=== PATIENT | female | born 1970 | race Caucasian/White ===

== ENCOUNTER 2017-01-25 23:26 | Emergency (ER) | payer OTHER ==
[~2017-01-25] VITALS: Ht 172.7 cm; Wt 71.2 kg
[~2017-01-25 23:26] MED LIST: ACIPHEX 20 MG T20 MG PO; ADULT LOW DOSE81 MG PO; ALEVE220 M1 PO; CARVEDILOL3.125 MG PO; CIPROFLOXACIN500 M1 PO; CLARITIN10 M2 PO; FISH OIL 1,0001 EAC5 PO; FLAGYL500 MG PO; FLEXERIL PO; FUROSEMIDE 40 M40 MG PO; GLUCOPHAGE500 MG PO; HYDROCODON-ACE1 EAC7; LANSOPRAZOLE15 MG PO; LEVAQUIN 500 M500 M2 PO; LISINOPRIL10 MG PO; MONTELUKAST SOD10 MG PO; NICOTINE TRANSD14 M1 PO; NORCO 5-325 TA1 EACH PO; PERCOCET 5-3251 EACH PO; POTASSIUM20; PREDNISONE 20 M20 M1 PO; PREMIER DRAINA MC; PROVENTIL HFA6.7 G1 INH; ROBAXIN 750 MG750 M1 PO; SIMVASTATIN10 MG PO; SINGULAIR 10 MG10 M1 PO; TAPAZOLE5 MG PO; TOPAMAX 25 MG T25 M1 PG; TOPAMAX25 M1 PO; TRAMADOL 50 MG50 MG PO; ULTRAM 50MG TAB50 MG PO; VALIUM2 MG PO; VALIUM5 MG PO; VENTOLIN HFA 1818 GM INH; VITAMIN D 5050000 I1 PO; ZPAK PO
[2017-01-25] MEDS ORDERED: PLAVIX 75 MG TA75 M1 PO (23:53)
[2017-01-25] MEDS ORDERED: ZYRTEC10 M5 PO (23:53)
== END 2017-01-26 00:15 | disposition home or self-care (01) ==
LOC: ER 23:26
DX: M77.9 Enthesopathy, unspecified (principal); F41.9 Anxiety disorder, unspecified; J45.909 Unspecified asthma, uncomplicated; M19.90 Unspecified osteoarthritis, unspecified site; E03.9 Hypothyroidism, unspecified; I50.9 Heart failure, unspecified; F32.9 Major depressive disorder, single episode, unspecified; F15.90 Other stimulant use, unspecified, uncomplicated; F17.210 Nicotine dependence, cigarettes, uncomplicated; Z86.73 Personal history of transient ischemic attack (TIA), and cerebral infarction without residual deficits; Z91.048 Other nonmedicinal substance allergy status; Z88.5 Allergy status to narcotic agent; Z88.6 Allergy status to analgesic agent; Z88.0 Allergy status to penicillin; Z91.011 Allergy to milk products; Z88.8 Allergy status to other drugs, medicaments and biological substances

== ENCOUNTER 2017-02-04 20:51 | Emergency (ER) | payer OTHER ==
[~2017-02-04] VITALS: Ht 172.7 cm; Wt 71.2 kg
[~2017-02-04 20:51] MED LIST changes: +PLAVIX 75 MG TA75 M1 PO; +ZYRTEC10 M5 PO
[2017-02-04] MEDS ORDERED: NORCO 5-325 TA1 EACH PO (21:35)
[2017-02-04] MEDS ORDERED: DIFLUCAN200 MG PO (21:43)
[2017-02-04] MEDS ORDERED: BACTRIM DS TAB1 EACH PO (21:43)
== END 2017-02-04 21:44 | disposition home or self-care (01) ==
LOC: ER 20:51
DX: N76.4 Abscess of vulva (principal); F41.9 Anxiety disorder, unspecified; J45.909 Unspecified asthma, uncomplicated; E03.9 Hypothyroidism, unspecified; I50.9 Heart failure, unspecified; K50.90 Crohn's disease, unspecified, without complications; F17.210 Nicotine dependence, cigarettes, uncomplicated; F10.99 Alcohol use, unspecified with unspecified alcohol-induced disorder; Z86.73 Personal history of transient ischemic attack (TIA), and cerebral infarction without residual deficits; Z91.048 Other nonmedicinal substance allergy status; Z88.5 Allergy status to narcotic agent; Z88.6 Allergy status to analgesic agent; Z88.0 Allergy status to penicillin; Z88.8 Allergy status to other drugs, medicaments and biological substances; F15.90 Other stimulant use, unspecified, uncomplicated

== ENCOUNTER 2017-02-14 22:15 | Emergency (ER) | payer OTHER ==
[~2017-02-14] VITALS: Ht 172.7 cm; Wt 73.8 kg
[~2017-02-14 22:15] MED LIST changes: +BACTRIM DS TAB1 EACH PO; +DIFLUCAN200 MG PO
[2017-02-14] MEDS ORDERED: AMBIEN 5 MG TABL5 M1 PO (22:22)
[2017-02-14] MEDS ORDERED: SERTRALINE HCL50 MG PO (22:22)
[2017-02-14] MEDS ORDERED: NORFLEX100 MG PO ×2 (22:23→22:24)
[2017-02-14] MEDS ORDERED: ZPAK PO (22:25)
[2017-02-14] MEDS ORDERED: CLOTRIMAZOLE10 MG MM (22:50)
== END 2017-02-14 22:53 | disposition home or self-care (01) ==
LOC: ER 22:15
DX: J02.0 Streptococcal pharyngitis (principal); F41.9 Anxiety disorder, unspecified; F32.9 Major depressive disorder, single episode, unspecified; J45.909 Unspecified asthma, uncomplicated; M19.90 Unspecified osteoarthritis, unspecified site; E03.9 Hypothyroidism, unspecified; I50.9 Heart failure, unspecified; F17.210 Nicotine dependence, cigarettes, uncomplicated; F10.99 Alcohol use, unspecified with unspecified alcohol-induced disorder; Z86.73 Personal history of transient ischemic attack (TIA), and cerebral infarction without residual deficits; Z91.048 Other nonmedicinal substance allergy status; Z88.5 Allergy status to narcotic agent; Z88.6 Allergy status to analgesic agent; Z88.0 Allergy status to penicillin; Z91.011 Allergy to milk products; Z88.8 Allergy status to other drugs, medicaments and biological substances

== ENCOUNTER 2017-03-06 22:42 | Emergency (ER) | payer OTHER ==
[~2017-03-06] VITALS: Ht 172.7 cm; Wt 73.5 kg
[~2017-03-06 22:42] MED LIST changes: +AMBIEN 5 MG TABL5 M1 PO; +CLOTRIMAZOLE10 MG MM; +NORFLEX100 MG PO; +SERTRALINE HCL50 MG PO
[2017-03-07 00:32] LABS: ABSOLUTE NEUTROPHILS 6.4 thou/uL (1.4-8.2); EOSINOPHILS 1.6 % (0.0-3.0); HEMATOCRIT 32.8 % (37.0-47.0); HEMOGLOBIN 10.7 gm/dL (12.0-15.0); LYMPHOCYTES 16.6 % (24.0-44.0); MCH 25.7 pg (26.0-34.0); MCHC 32.7 g/dL (28.0-37.0); MCV 78.5 fL (80.0-100.0); MONOCYTES 8.5 % (1.0-8.0); PLATELET COUNT 206 thou/uL (150-400); POLYS 72.3 % (36.0-66.0); RBC 4.17 mil/uL (4.20-5.00); WBC 8.8 thou/uL (4.0-11.0)
[2017-03-07] MEDS ORDERED: FLONASE 0.05%50 MCG NASAL (00:35)
[2017-03-07] MEDS ORDERED: SUPER B-50 COM1 EACH (00:35)
[2017-03-07] MEDS ORDERED: SINGULAIR 10 MG10 M1 PO (00:36)
[2017-03-07] MEDS ORDERED: VENTOLIN HFA 1818 GM INH (00:36)
[2017-03-07] MEDS ORDERED: VITAMIN D32000 UNI1 PO (00:36)
[2017-03-07] MEDS ORDERED: SYMBICORT160 MCG/4. INH (00:37)
[2017-03-07] MEDS ORDERED: TOPROL XL25 MG (00:37)
[2017-03-07] MEDS ORDERED: APAP500 PO (00:37)
[2017-03-07 00:39] LABS: ANION GAP 8 mmol/L (7-16); BUN 17 mg/dL (7-18); CALCIUM 8.8 mg/dL (8.5-10.1); CHLORIDE 103 mmol/L (98-107); CO2 29 mmol/L (21-32); CREATININE 1.3 mg/dL (0.6-1.0); GLUCOSE 85 mg/dL (74-106); POTASSIUM 3.4 mmol/L (3.5-5.1); SODIUM 140 mmol/L (136-145)
[2017-03-07 00:45] LABS: ALBUMIN 3.4 g/dL (3.4-5.0); ALKALINE PHOSPHATASE 82 U/L (46-116); DIRECT BILIRUBIN < 0.1 mg/dL (<0.1-0.3); SGOT 19 U/L (15-37); SGPT 19 U/L (30-65); TOTAL BILIRUBIN 0.2 mg/dL (<0.1-1.0); TOTAL PROTEIN 6.8 g/dL (6.4-8.2)
[2017-03-07 00:48] LABS: MANUAL DIFF NO
[2017-03-07] MEDS ORDERED: NORCO 5-325 TA1 EACH PO (03:30)
== END 2017-03-07 03:44 | disposition home or self-care (01) ==
LOC: ER 22:42
PROVIDERS: Emergency Medicine
DX: K52.9 Noninfective gastroenteritis and colitis, unspecified (principal); K62.89 Other specified diseases of anus and rectum; F41.9 Anxiety disorder, unspecified; F32.9 Major depressive disorder, single episode, unspecified; J45.909 Unspecified asthma, uncomplicated; K50.90 Crohn's disease, unspecified, without complications; E03.9 Hypothyroidism, unspecified; M19.90 Unspecified osteoarthritis, unspecified site; I50.9 Heart failure, unspecified; F17.210 Nicotine dependence, cigarettes, uncomplicated; F10.99 Alcohol use, unspecified with unspecified alcohol-induced disorder; Z86.73 Personal history of transient ischemic attack (TIA), and cerebral infarction without residual deficits; Z91.048 Other nonmedicinal substance allergy status; Z88.5 Allergy status to narcotic agent; Z88.6 Allergy status to analgesic agent; Z88.0 Allergy status to penicillin; Z88.8 Allergy status to other drugs, medicaments and biological substances

== ENCOUNTER 2017-03-29 17:56 | Emergency (ER) | payer OTHER ==
[~2017-03-29] VITALS: Ht 172.7 cm; Wt 72.6 kg
--- NOTE | ~2017-03-29 | EKG ---
[place] [address] [place] [address] ELECTROCARDIOGRAM REPORT Name: KEITHMATILDAELDON CHILDS Room #: PRE [facility].#: [id number] Admission: Attend Phys: Discharge: Date of : 66 Report #: [id number] THIS REPORT FOR: //name// 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
[~2017-03-29 17:56] MED LIST changes: +APAP500 PO; +FLONASE 0.05%50 MCG NASAL; +SUPER B-50 COM1 EACH; +SYMBICORT160 MCG/4. INH; +TOPROL XL25 MG; +VITAMIN D32000 UNI1 PO
[2017-03-29] MEDS ORDERED: NORFLEX100 MG PO (18:15)
[2017-03-29] MEDS ORDERED: TOPAMAX 100 MG100 MG PO (18:16)
[2017-03-29 18:37] LABS: BASOPHILS 0.7 % (0.0-2.0); EOSINOPHILS 0.6 % (0.0-3.0); HEMATOCRIT 35.7 % (37.0-47.0); HEMOGLOBIN 11.3 gm/dL (12.0-15.0); LYMPHOCYTES 9.9 % (24.0-44.0); MCHC 31.7 g/dL (28.0-37.0); MCV 78.9 fL (80.0-100.0); MONOCYTES 5.9 % (1.0-8.0); PLATELET COUNT 214 thou/uL (150-400); POLYS 82.9 % (36.0-66.0); RBC 4.52 mil/uL (4.20-5.00); WBC 9.6 thou/uL (4.0-11.0)
[2017-03-29 18:44] LABS: MANUAL DIFF NO
[2017-03-29 18:45] LABS: URINE BILIRUBIN NEGATIVE (Negative); URINE BLOOD 1+ (Negative); URINE COLOR YELLOW; URINE GLUCOSE-RANDOM* NEGATIVE (Negative); URINE KETONES NEGATIVE (Negative); URINE LEUKOCYTES-REFLEX 2+ (Negative); URINE PROTEIN (DIPSTICK) NEGATIVE (Negative); URINE SPECIFIC GRAVITY <= 1.005 (1.003-1.035); URINE UROBILINOGEN 0.2 E.U./dl (0.2-1.0)
[2017-03-29 18:49] LABS: ANION GAP 10 mmol/L (7-16); BUN 12 mg/dL (7-18); CALCIUM 8.7 mg/dL (8.5-10.1); CHLORIDE 103 mmol/L (98-107); CO2 25 mmol/L (21-32); CREATININE 0.9 mg/dL (0.6-1.0); GLUCOSE 92 mg/dL (74-106); POTASSIUM 3.5 mmol/L (3.5-5.1); SODIUM 138 mmol/L (136-145)
[2017-03-29 18:52] LABS: AMP/METHAMP Negative (Negative); BARBITURATES Negative (Negative); BENZODIAZEPINES Negative (Negative); CASTS None Seen /LPF (None Seen); COCAINE Negative (Negative); CRYSTALS None Seen /LPF (None Seen); METHADONE Negative (Negative); OPIATES Negative (Negative); PCP Negative (Negative); SQUAMOUS None Seen /LPF (0-3); THC Negative (Negative); URINE RBC 0-2 Rare /HPF (0-2); URINE WBC-REFLEX 6-15 Few /HPF (0-5)
[2017-03-29 18:54] LABS: APTT 26.4 Seconds (24.5-32.8); PROTIME 9.8 Seconds (9.3-11.4)
[2017-03-29 18:58] LABS: ALBUMIN 3.8 g/dL (3.4-5.0); ALKALINE PHOSPHATASE 81 U/L (46-116); MAGNESIUM 1.6 mg/dL (1.8-2.4); SGOT 15 U/L (15-37); SGPT 18 U/L (30-65); TOTAL BILIRUBIN 0.3 mg/dL (<0.1-1.0); TOTAL PROTEIN 7.3 g/dL (6.4-8.2); TROPONIN-I < 0.04 ng/mL (<0.04-0.07)
[2017-03-29] MEDS ORDERED: PREDNISONE 20 M20 MG PO (19:26)
[2017-03-29] MEDS ORDERED: ATIVAN0.5 MG PO (19:26)
[2017-03-29] MEDS ORDERED: MAG-OXIDE400 MG PO (19:26)
[2017-03-30] MEDS ORDERED: TRAMADOL 50 MG50 MG PO (22:51)
[2017-03-30] MEDS ORDERED: BUTALB-APAP-CA1 EACH PO (22:51)
[2017-03-30] MEDS ORDERED: PREDNISONE 20 M20 MG PO (22:51)
== END 2017-03-29 20:07 | disposition home or self-care (01) ==
LOC: ER 17:56
PROVIDERS: Emergency Medicine
DX: R07.89 Other chest pain (principal); F41.9 Anxiety disorder, unspecified; J44.9 Chronic obstructive pulmonary disease, unspecified; I50.9 Heart failure, unspecified; E83.42 Hypomagnesemia; M19.90 Unspecified osteoarthritis, unspecified site; E03.9 Hypothyroidism, unspecified; Z86.73 Personal history of transient ischemic attack (TIA), and cerebral infarction without residual deficits; F17.210 Nicotine dependence, cigarettes, uncomplicated; Z88.0 Allergy status to penicillin; Z88.6 Allergy status to analgesic agent; Z88.8 Allergy status to other drugs, medicaments and biological substances; Z91.048 Other nonmedicinal substance allergy status; Z91.011 Allergy to milk products

== ENCOUNTER 2017-03-30 21:12 | Emergency (ER) | payer OTHER | END 2017-03-30 23:50 | disposition home or self-care (01) | LOC: ER 21:12 | DX: G44.209 Tension-type headache, unspecified, not intractable (principal); E34.51 Complete androgen insensitivity syndrome; I50.9 Heart failure, unspecified; F41.9 Anxiety disorder, unspecified; J45.909 Unspecified asthma, uncomplicated; M19.90 Unspecified osteoarthritis, unspecified site; E03.9 Hypothyroidism, unspecified; F17.210 Nicotine dependence, cigarettes, uncomplicated; Z86.73 Personal history of transient ischemic attack (TIA), and cerebral infarction without residual deficits; Z88.0 Allergy status to penicillin; Z88.6 Allergy status to analgesic agent; Z88.5 Allergy status to narcotic agent; Z91.048 Other nonmedicinal substance allergy status; Z88.8 Allergy status to other drugs, medicaments and biological substances ==

== ENCOUNTER 2017-04-18 14:34 | Emergency (ER) | payer OTHER ==
[~2017-04-18] VITALS: Ht 172.7 cm; Wt 71.2 kg
[~2017-04-18 14:34] MED LIST changes: +ATIVAN0.5 MG PO; +BUTALB-APAP-CA1 EACH PO; +MAG-OXIDE400 MG PO; +PREDNISONE 20 M20 MG PO; +TOPAMAX 100 MG100 MG PO
[2017-04-18] MEDS ORDERED: AFRIN15 ML SPRAY (17:55)
[2017-04-18] MEDS ORDERED: PREDNISONE 20 M20 MG PO (17:55)
== END 2017-04-18 18:42 | disposition home or self-care (01) ==
LOC: ER 14:34
DX: G43.909 Migraine, unspecified, not intractable, without status migrainosus (principal); J32.9 Chronic sinusitis, unspecified; F41.9 Anxiety disorder, unspecified; F32.9 Major depressive disorder, single episode, unspecified; J45.909 Unspecified asthma, uncomplicated; K50.90 Crohn's disease, unspecified, without complications; M19.90 Unspecified osteoarthritis, unspecified site; E03.9 Hypothyroidism, unspecified; I50.9 Heart failure, unspecified; F17.210 Nicotine dependence, cigarettes, uncomplicated; Z86.73 Personal history of transient ischemic attack (TIA), and cerebral infarction without residual deficits; Z90.89 Acquired absence of other organs; Z88.5 Allergy status to narcotic agent; Z88.6 Allergy status to analgesic agent; Z91.041 Radiographic dye allergy status; Z88.0 Allergy status to penicillin; Z88.8 Allergy status to other drugs, medicaments and biological substances

== ENCOUNTER 2017-05-15 14:29 | Emergency (ER) | payer OTHER ==
[~2017-05-15] VITALS: Ht 172.7 cm; Wt 76.8 kg
--- NOTE | ~2017-05-15 | EKG ---
[address] [address] ELECTROCARDIOGRAM REPORT Name: ELDON CALLE Room #: [facility]#: [id number] Admission: 05/15/17 Attend Phys: Discharge: 05/15/17 Date of : 66 Report #: [id number] THIS REPORT FOR: //name// [facility] ED Test Date: 2017-05-15 Test Time: 14:48:23 Pat Name: ELDON CALLE Department: Room: Gender: F Cyber Security Analyst: Patrica SUAREZ : 1970 Requested By: Arcadio Chan Order Number: [id number] MD: Jorge Marc Measurements Intervals [place] Rate: 48 P: 46 SD: 129 QRS: 52 QRSD: 104 T: 6 QT: 496 QTc: 444 Interpretive Statements Sinus bradycardia Compared to ECG 03/29/2017 18:00:19 Sinus rhythm no longer present ST (T wave) deviation no longer present Electronically Signed On 05-15-2017 20:30:00 CDT by Jorge Marc [email or web address] <ELECTRONICALLY SIGNED> By: Jorge Marc MD 05/15/17 2030 1448 1448 Jorge Marc MD /MELINDA
[~2017-05-15 14:29] MED LIST changes: +AFRIN15 ML SPRAY
[2017-05-15 15:09] LABS: ABSOLUTE NEUTROPHILS 7.2 thou/uL (1.4-8.2); BASOPHILS 0.9 % (0.0-2.0); EOSINOPHILS 0.9 % (0.0-3.0); HEMATOCRIT 41.2 % (37.0-47.0); HEMOGLOBIN 13.3 gm/dL (12.0-15.0); LYMPHOCYTES 10.4 % (24.0-44.0); MCH 25.4 pg (26.0-34.0); MCHC 32.2 g/dL (28.0-37.0); MCV 78.9 fL (80.0-100.0); PLATELET COUNT 177 thou/uL (150-400); POLYS 80.8 % (36.0-66.0); RBC 5.22 mil/uL (4.20-5.00); RDW 17.4 % (10.5-14.5); WBC 8.9 thou/uL (4.0-11.0)
[2017-05-15 15:11] LABS: MANUAL DIFF NO
[2017-05-15 15:18] LABS: ANION GAP 9 mmol/L (7-16); BUN 15 mg/dL (7-18); CALCIUM 9.4 mg/dL (8.5-10.1); CHLORIDE 104 mmol/L (98-107); CO2 24 mmol/L (21-32); CREATININE 1.1 mg/dL (0.6-1.0); GLUCOSE 71 mg/dL (74-106); POTASSIUM 3.5 mmol/L (3.5-5.1); SODIUM 137 mmol/L (136-145)
[2017-05-15 15:27] LABS: TROPONIN-I < 0.04 ng/mL (<0.04-0.07)
[2017-05-15] MEDS ORDERED: VALIUM5 MG PO (16:29)
== END 2017-05-15 16:37 | disposition home or self-care (01) ==
LOC: ER 14:29
PROVIDERS: Nurse Practitioner
DX: R42 Dizziness and giddiness (principal); F41.9 Anxiety disorder, unspecified; J45.909 Unspecified asthma, uncomplicated; K50.90 Crohn's disease, unspecified, without complications; M19.90 Unspecified osteoarthritis, unspecified site; E03.9 Hypothyroidism, unspecified; I50.9 Heart failure, unspecified; F17.210 Nicotine dependence, cigarettes, uncomplicated; Z86.73 Personal history of transient ischemic attack (TIA), and cerebral infarction without residual deficits; Z88.5 Allergy status to narcotic agent; Z88.6 Allergy status to analgesic agent; Z88.0 Allergy status to penicillin; Z91.041 Radiographic dye allergy status; Z88.8 Allergy status to other drugs, medicaments and biological substances

== ENCOUNTER 2017-05-18 19:42 | Emergency (ER) | payer OTHER ==
[~2017-05-18] VITALS: Ht 170.2 cm; Wt 76.7 kg
[2017-05-18] MEDS ORDERED: ANTIVERT25 MG PO (23:06)
== END 2017-05-18 23:35 | disposition home or self-care (01) ==
LOC: ER 19:42
DX: H81.10 Benign paroxysmal vertigo, unspecified ear (principal); F41.9 Anxiety disorder, unspecified; F32.9 Major depressive disorder, single episode, unspecified; J45.909 Unspecified asthma, uncomplicated; M19.90 Unspecified osteoarthritis, unspecified site; E03.9 Hypothyroidism, unspecified; I50.9 Heart failure, unspecified; F17.210 Nicotine dependence, cigarettes, uncomplicated; Z86.73 Personal history of transient ischemic attack (TIA), and cerebral infarction without residual deficits; Z90.89 Acquired absence of other organs; Z88.5 Allergy status to narcotic agent; Z88.6 Allergy status to analgesic agent; Z91.041 Radiographic dye allergy status; Z88.0 Allergy status to penicillin; Z88.8 Allergy status to other drugs, medicaments and biological substances

== ENCOUNTER 2017-11-13 17:13 | Emergency (ER) | payer OTHER ==
[~2017-11-13] VITALS: Ht 172.7 cm; Wt 72.6 kg
--- NOTE | ~2017-11-13 | EKG ---
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: DAR : 1970 Requested By: Mitchell Tavares Order Number: [id number] MD: Lino Cerda Measurements Intervals [place] Rate: 62 P: 64 OK: 132 QRS: 50 QRSD: 108 T: 3 QT: 462 QTc: 470 Interpretive Statements Sinus rhythm Borderline repolarization abnormality Compared to ECG 05/15/2017 14:48:23 Sinus bradycardia no longer present Electronically Signed On 11-14-2017 8:31:36 CDT by Lino Cerda [email or web address] <ELECTRONICALLY SIGNED> By: Lino Cerda MD, [facility] 11/14/17 0831 1711 10 Lino Cerda MD, FACC /EPI
[~2017-11-13 17:13] MED LIST changes: +ANTIVERT25 MG PO
[2017-11-13 17:49] LABS: ABSOLUTE NEUTROPHILS 6.7 thou/uL (1.4-8.2); BASOPHILS 0.5 % (0.0-2.0); EOSINOPHILS 0.5 % (0.0-3.0); HEMATOCRIT 38.9 % (37.0-47.0); HEMOGLOBIN 12.7 gm/dL (12.0-15.0); LYMPHOCYTES 12.6 % (24.0-44.0); MCH 27.7 pg (26.0-34.0); MCHC 32.6 g/dL (28.0-37.0); MCV 84.9 fL (80.0-100.0); MONOCYTES 4.9 % (1.0-8.0); PLATELET COUNT 181 thou/uL (150-400); POLYS 81.5 % (36.0-66.0); RBC 4.58 mil/uL (4.20-5.00); RDW 16.5 % (10.5-14.5); WBC 8.3 thou/uL (4.0-11.0)
[2017-11-13 17:56] LABS: ANION GAP 8 mmol/L (7-16); BUN 16 mg/dL (7-18); CALCIUM 9.7 mg/dL (8.5-10.1); CHLORIDE 103 mmol/L (98-107); CO2 25 mmol/L (21-32); CREATININE 1.2 mg/dL (0.6-1.0); GLUCOSE 101 mg/dL (74-106); POTASSIUM 3.3 mmol/L (3.5-5.1); SODIUM 136 mmol/L (136-145)
[2017-11-13 18:05] LABS: ALBUMIN 3.6 g/dL (3.4-5.0); DIRECT BILIRUBIN < 0.1 mg/dL (<0.1-0.3); SGOT 22 U/L (15-37); SGPT 24 U/L (30-65); TOTAL BILIRUBIN 0.3 mg/dL (<0.1-1.0); TOTAL PROTEIN 7.6 g/dL (6.4-8.2); TROPONIN-I < 0.04 ng/mL (<0.06)
== END 2017-11-13 20:18 | disposition home or self-care (01) ==
LOC: ER 17:13
PROVIDERS: Physician Assistant
DX: R07.9 Chest pain, unspecified (principal); I50.9 Heart failure, unspecified; E03.9 Hypothyroidism, unspecified; J45.909 Unspecified asthma, uncomplicated; M19.90 Unspecified osteoarthritis, unspecified site; F17.210 Nicotine dependence, cigarettes, uncomplicated; Z88.0 Allergy status to penicillin; Z88.6 Allergy status to analgesic agent; Z88.5 Allergy status to narcotic agent

== ENCOUNTER 2018-01-09 06:55 | Emergency (ER) | payer OTHER ==
[~2018-01-09] VITALS: Ht 172.7 cm; Wt 72.6 kg
[2018-01-09] MEDS ORDERED: BUTALB-APAP-CA1 EACH PO (08:10)
== END 2018-01-09 08:43 | disposition home or self-care (01) ==
LOC: ER 06:55
DX: G43.909 Migraine, unspecified, not intractable, without status migrainosus (principal); F41.9 Anxiety disorder, unspecified; F32.9 Major depressive disorder, single episode, unspecified; J45.909 Unspecified asthma, uncomplicated; M19.90 Unspecified osteoarthritis, unspecified site; E03.9 Hypothyroidism, unspecified; I50.9 Heart failure, unspecified; I63.9 Cerebral infarction, unspecified; F17.210 Nicotine dependence, cigarettes, uncomplicated; Z88.5 Allergy status to narcotic agent; Z88.6 Allergy status to analgesic agent; Z88.0 Allergy status to penicillin; Z91.018 Allergy to other foods; Z91.048 Other nonmedicinal substance allergy status; Z91.041 Radiographic dye allergy status

== ENCOUNTER 2018-01-18 13:12 | Emergency (ER) | payer OTHER ==
[~2018-01-18] VITALS: Ht 172.7 cm; Wt 69.6 kg
[2018-01-18] MEDS ORDERED: MINOCIN100 MG PO (13:43)
[2018-01-18 13:55] LABS: ABSOLUTE NEUTROPHILS 4.4 thou/uL (1.4-8.2); BASOPHILS 0.8 % (0.0-2.0); EOSINOPHILS 2.4 % (0.0-3.0); HEMATOCRIT 41.6 % (37.0-47.0); HEMOGLOBIN 13.7 gm/dL (12.0-15.0); LYMPHOCYTES 14.7 % (24.0-44.0); MCH 29.8 pg (26.0-34.0); MCHC 32.9 g/dL (28.0-37.0); MCV 90.6 fL (80.0-100.0); MONOCYTES 8.8 % (1.0-8.0); PLATELET COUNT 109 thou/uL (150-400); POLYS 73.3 % (36.0-66.0); RBC 4.59 mil/uL (4.20-5.00); RDW 18.6 % (10.5-14.5)
[2018-01-18 14:08] LABS: CALCIUM 7.9 mg/dL (8.5-10.1); POTASSIUM 3.5 mmol/L (3.5-5.1)
[2018-01-18 14:13] LABS: ALBUMIN 2.6 g/dL (3.4-5.0); TOTAL BILIRUBIN 0.3 mg/dL (<0.1-1.0); TOTAL PROTEIN 5.9 g/dL (6.4-8.2)
[2018-01-18 15:02] LABS: URINE BILIRUBIN NEGATIVE (Negative); URINE BLOOD NEGATIVE (Negative); URINE CLARITY CLEAR; URINE COLOR YELLOW; URINE GLUCOSE-RANDOM* NEGATIVE (Negative); URINE KETONES NEGATIVE (Negative); URINE NITRITE-REFLEX NEGATIVE (Negative); URINE PROTEIN (DIPSTICK) NEGATIVE (Negative); URINE UROBILINOGEN 0.2 E.U./dl (0.2-1.0)
[2018-01-18 15:05] LABS: URINE LEUKOCYTES-REFLEX 1+ (Negative)
[2018-01-18 15:14] LABS: SQUAMOUS 4-10 Moderate /LPF (0-3)
[2018-01-18 15:15] LABS: BACTERIA-REFLEX None Seen /HPF (None Seen); CASTS None Seen /LPF (None Seen); URINE RBC 0-2 Rare /HPF (0-2); URINE WBC-REFLEX 0-5 Rare /HPF (0-5)
[2018-01-18 15:16] LABS: CRYSTALS None Seen /LPF (None Seen)
[2018-01-18] MEDS ORDERED: ONDANSETRON HCL4 M2 PO (16:29)
[2018-01-18] MEDS ORDERED: PREDNISONE 20 M20 MG PO (16:29)
== END 2018-01-18 16:47 | disposition home or self-care (01) ==
LOC: ER 13:12
PROVIDERS: Nurse Practitioner Family
DX: N39.0 Urinary tract infection, site not specified (principal); K50.90 Crohn's disease, unspecified, without complications; F41.9 Anxiety disorder, unspecified; J45.909 Unspecified asthma, uncomplicated; I50.9 Heart failure, unspecified; E03.9 Hypothyroidism, unspecified; M19.90 Unspecified osteoarthritis, unspecified site; F17.210 Nicotine dependence, cigarettes, uncomplicated; Z88.0 Allergy status to penicillin; Z91.041 Radiographic dye allergy status; Z88.5 Allergy status to narcotic agent; Z88.8 Allergy status to other drugs, medicaments and biological substances

== ENCOUNTER 2018-02-15 16:53 | Emergency (ER) | payer OTHER ==
[~2018-02-15] VITALS: Ht 177.8 cm; Wt 73.9 kg
--- NOTE | ~2018-02-15 | EKG ---
[place] [address] [facility] [place] [address] ELECTROCARDIOGRAM REPORT Name: ELDON CALLE Room #: DEP [facility]#: [id number] Admission: 02/15/18 Attend Phys: Discharge: 02/15/18 Date of : 66 Report #: [id number] THIS REPORT FOR: //name// [facility] ED Test Date: 2018-02-15 Test Time: 17:12:44 Pat Name: ELDON CALLE Department: Room: Gender: F Manager Market Intelligence: AVNI : 1970 Requested By: Haleigh Monaco Order Number: [id number] MD: Willie Leggett Measurements Intervals [place] Rate: 80 P: 63 CT: 137 QRS: 33 QRSD: 102 T: 8 QT: 438 QTc: 506 Interpretive Statements Sinus rhythm Ventricular bigeminy Borderline T wave abnormalities Compared to ECG 11/13/2017 17:11:05 Ventricular premature complex(es) now present T-wave abnormality now present Electronically Signed On 02-16-2018 10:47:45 CDT by Willie Leggett [email or web address] <ELECTRONICALLY SIGNED> By: Wlilie Leggett MD 02/16/18 1047 11 11 Willie Leggett MD /MELINDA
[~2018-02-15 16:53] MED LIST changes: +MINOCIN100 MG PO; +ONDANSETRON HCL4 M2 PO
[2018-02-15 17:26] LABS: URINE BILIRUBIN NEGATIVE (Negative); URINE BLOOD 1+ (Negative); URINE CLARITY CLEAR; URINE COLOR YELLOW; URINE GLUCOSE-RANDOM* NEGATIVE (Negative); URINE KETONES NEGATIVE (Negative); URINE NITRITE-REFLEX NEGATIVE (Negative); URINE PROTEIN (DIPSTICK) NEGATIVE (Negative); URINE SPECIFIC GRAVITY 1.025 (1.005-1.035); URINE UROBILINOGEN 0.2 E.U./dl (0.2-1.0)
[2018-02-15 17:30] LABS: URINE LEUKOCYTES-REFLEX 2+ (Negative)
[2018-02-15 17:36] LABS: SQUAMOUS 0-3 Few /LPF (0-3)
[2018-02-15 17:37] LABS: CASTS None Seen /LPF (None Seen); CRYSTALS None Seen /LPF (None Seen); URINE RBC 3-10 Few /HPF (0-2)
[2018-02-15 17:50] LABS: ABSOLUTE NEUTROPHILS 9.2 thou/uL (1.4-8.2); BASOPHILS 0.2 % (0.0-2.0); EOSINOPHILS 0.1 % (0.0-3.0); HEMATOCRIT 36.9 % (37.0-47.0); HEMOGLOBIN 12.4 gm/dL (12.0-15.0); LYMPHOCYTES 4.2 % (24.0-44.0); MCH 31.3 pg (26.0-34.0); MCHC 33.5 g/dL (28.0-37.0); MCV 93.5 fL (80.0-100.0); MONOCYTES 3.9 % (1.0-8.0); PLATELET COUNT 113 thou/uL (150-400); POLYS 91.6 % (36.0-66.0); RBC 3.95 mil/uL (4.20-5.00); RDW 17.1 % (10.5-14.5); WBC 10.1 thou/uL (4.0-11.0)
[2018-02-15 18:13] LABS: ANION GAP 5 mmol/L (7-16); BUN 14 mg/dL (7-18); CALCIUM 8.1 mg/dL (8.5-10.1); CHLORIDE 108 mmol/L (98-107); CO2 26 mmol/L (21-32); GLUCOSE 135 mg/dL (74-106); POTASSIUM 3.5 mmol/L (3.5-5.1); SODIUM 139 mmol/L (136-145)
[2018-02-15 18:17] LABS: LARGE PLATELETS RARE
[2018-02-15 18:25] LABS: TROPONIN-I <0.06 ng/mL (<0.06)
[2018-02-15] MEDS ORDERED: MACROBID 100 M100 M1 PO (18:51)
[2018-02-15] MEDS ORDERED: LASIX 20 MG TAB20 MG PO (18:51)
== END 2018-02-15 19:03 | disposition home or self-care (01) ==
LOC: ER 16:53
PROVIDERS: Nurse Practitioner Family
DX: R60.0 Localized edema (principal); N39.0 Urinary tract infection, site not specified; I50.9 Heart failure, unspecified; E03.9 Hypothyroidism, unspecified; F41.9 Anxiety disorder, unspecified; J45.909 Unspecified asthma, uncomplicated; G47.00 Insomnia, unspecified; M19.90 Unspecified osteoarthritis, unspecified site; K50.90 Crohn's disease, unspecified, without complications; F17.210 Nicotine dependence, cigarettes, uncomplicated; Z88.0 Allergy status to penicillin; Z88.6 Allergy status to analgesic agent; Z88.5 Allergy status to narcotic agent; Z91.041 Radiographic dye allergy status

== ENCOUNTER 2018-03-10 21:18 | Emergency (ER) | payer OTHER ==
[~2018-03-10] VITALS: Ht 170.2 cm; Wt 83.9 kg
--- NOTE | ~2018-03-10 | EKG ---
[place] [address] [employer] [facility] [place] [address] ELECTROCARDIOGRAM REPORT Name: ELDON CALLE Room #: DEP [facility]#: [id number] Admission: 03/10/18 Attend Phys: Discharge: 03/10/18 Date of : 66 Report #: [id number] THIS REPORT FOR: //name// [facility] ED Test Date: 2018-03-10 Test Time: 22:00:07 Pat Name: ELDON CALLE Department: Room: Gender: F Coordinator Of Evaluation: Melissa CORTEZ : 1970 Requested By: Marko Butler Order Number: [id number] MD: Lino Cerda Measurements Intervals [place] Rate: 66 P: 40 NM: 122 QRS: 37 QRSD: 98 T: 28 QT: 440 QTc: 461 Interpretive Statements Sinus rhythm Ventricular premature complex Compared to ECG 02/15/2018 17:12:44 No significant change was found Electronically Signed On 03-11-2018 9:10:05 CDT by Lino Cerda [email or web address] <ELECTRONICALLY SIGNED> By: Lino Cerda MD, [facility] 03/11/18 0910 99 99 Lino Cerda MD, FACC /EPI
[~2018-03-10 21:18] MED LIST changes: +LASIX 20 MG TAB20 MG PO; +MACROBID 100 M100 M1 PO
[2018-03-10 21:50] LABS: ABSOLUTE NEUTROPHILS 9.2 thou/uL (1.4-8.2); BASOPHILS 0.3 % (0.0-2.0); EOSINOPHILS 0.5 % (0.0-3.0); HEMATOCRIT 39.1 % (37.0-47.0); HEMOGLOBIN 13.1 gm/dL (12.0-15.0); LYMPHOCYTES 9.6 % (24.0-44.0); MCH 31.8 pg (26.0-34.0); MCHC 33.5 g/dL (28.0-37.0); MONOCYTES 6.1 % (1.0-8.0); PLATELET COUNT 101 thou/uL (150-400); POLYS 83.5 % (36.0-66.0); RBC 4.11 mil/uL (4.20-5.00)
[2018-03-10 21:51] LABS: URINE BILIRUBIN NEGATIVE (Negative); URINE BLOOD 1+ (Negative); URINE CLARITY CLEAR; URINE COLOR YELLOW; URINE GLUCOSE-RANDOM* NEGATIVE (Negative); URINE KETONES NEGATIVE (Negative); URINE NITRITE-REFLEX NEGATIVE (Negative); URINE PROTEIN (DIPSTICK) NEGATIVE (Negative); URINE SPECIFIC GRAVITY 1.025 (1.005-1.035); URINE UROBILINOGEN 0.2 E.U./dl (0.2-1.0)
[2018-03-10 21:53] LABS: URINE LEUKOCYTES-REFLEX 1+ (Negative)
[2018-03-10 21:56] LABS: ANION GAP 9 mmol/L (7-16); BUN 25 mg/dL (7-18); CALCIUM 8.5 mg/dL (8.5-10.1); CHLORIDE 107 mmol/L (98-107); CO2 23 mmol/L (21-32); CREATININE 1.2 mg/dL (0.6-1.0); GLUCOSE 82 mg/dL (74-106); POTASSIUM 3.9 mmol/L (3.5-5.1); SODIUM 139 mmol/L (136-145)
[2018-03-10 22:01] LABS: BACTERIA-REFLEX None Seen /HPF (None Seen); CASTS None Seen /LPF (None Seen); CRYSTALS None Seen /LPF (None Seen); SQUAMOUS 4-10 Moderate /LPF (0-3); URINE RBC 0-2 Rare /HPF (0-2)
[2018-03-10 22:05] LABS: ALBUMIN 2.9 g/dL (3.4-5.0); LIPASE 101 U/L (73-393); SGOT 28 U/L (15-37); SGPT 38 U/L (30-65); TOTAL BILIRUBIN 0.4 mg/dL (<0.1-1.0); TROPONIN-I <0.06 ng/mL (<0.06)
[2018-03-10] MEDS ORDERED: CARISOPRODOL 3350 MG PO (22:25)
[2018-03-10] MEDS ORDERED: SPIRONOLACTONE25 M1 PO (22:25)
[2018-03-10] MEDS ORDERED: IPRATROPIU0.2 MG/1 M INH (22:25)
[2018-03-10] MEDS ORDERED: BRILINTA60 MG (22:26)
[2018-03-10] MEDS ORDERED: LIPITOR10 MG (22:26)
[2018-03-10] MEDS ORDERED: PREDNISONE 20 M20 MG PO (23:01)
[2018-03-10] MEDS ORDERED: LEVSIN0.125 MG PO (23:01)
== END 2018-03-10 23:40 | disposition home or self-care (01) ==
LOC: ER 21:18
PROVIDERS: Physician Assistant
DX: I50.30 Unspecified diastolic (congestive) heart failure (principal); J45.901 Unspecified asthma with (acute) exacerbation; R10.9 Unspecified abdominal pain; F17.210 Nicotine dependence, cigarettes, uncomplicated; E03.9 Hypothyroidism, unspecified; I63.9 Cerebral infarction, unspecified; F41.9 Anxiety disorder, unspecified; F32.9 Major depressive disorder, single episode, unspecified; M19.90 Unspecified osteoarthritis, unspecified site; K50.00 Crohn's disease of small intestine without complications; Z91.048 Other nonmedicinal substance allergy status; Z88.5 Allergy status to narcotic agent; Z88.6 Allergy status to analgesic agent; Z91.041 Radiographic dye allergy status; Z88.0 Allergy status to penicillin; Z91.011 Allergy to milk products; Z91.018 Allergy to other foods

== ENCOUNTER 2018-05-10 11:27 | Emergency (ER) | payer OTHER ==
[~2018-05-10] VITALS: Ht 172.7 cm; Wt 79.2 kg
--- NOTE | ~2018-05-10 | EKG ---
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 : 1970 Requested By: Edilia Langford Order Number: [id number] MD: Lino Cerda Measurements Intervals [place] Rate: 48 P: 52 HI: 114 QRS: 50 QRSD: 105 T: 29 QT: 490 QTc: 438 Interpretive Statements Sinus bradycardia Ventricular premature complex Nonspecific ST segment abnormality Compared to ECG 03/10/2018 22:00:07 Heart rate has slowed Electronically Signed On 05-11-2018 11:28:27 CDT by Lino Cerda [email or web address] <ELECTRONICALLY SIGNED> By: Lino Cerda MD, [facility] 05/11/18 1128 1137 36 Lino Cerda MD, FACC /EPI
[~2018-05-10 11:27] MED LIST changes: +BRILINTA60 MG; +CARISOPRODOL 3350 MG PO; +IPRATROPIU0.2 MG/1 M INH; +LEVSIN0.125 MG PO; +LIPITOR10 MG; +NYSTATIN100000 UNI SW&SWALLOW; +SPIRONOLACTONE25 M1 PO
[2018-05-10 12:10] LABS: ABSOLUTE NEUTROPHILS 7.2 thou/uL (1.4-8.2); BASOPHILS 0.6 % (0.0-2.0); EOSINOPHILS 0.7 % (0.0-3.0); HEMATOCRIT 41.8 % (37.0-47.0); HEMOGLOBIN 14.1 gm/dL (12.0-15.0); MCH 32.3 pg (26.0-34.0); MCHC 33.8 g/dL (28.0-37.0); MCV 95.6 fL (80.0-100.0); MONOCYTES 7.2 % (1.0-8.0); PLATELET COUNT 132 thou/uL (150-400); POLYS 75.5 % (36.0-66.0); RBC 4.38 mil/uL (4.20-5.00); RDW 14.5 % (10.5-14.5); WBC 9.5 thou/uL (4.0-11.0)
[2018-05-10 12:28] LABS: ANION GAP 5 mmol/L (7-16); BUN 29 mg/dL (7-18); CALCIUM 8.8 mg/dL (8.5-10.1); CHLORIDE 107 mmol/L (98-107); CO2 26 mmol/L (21-32); CREATININE 1.1 mg/dL (0.6-1.0); GLUCOSE 89 mg/dL (74-106)
[2018-05-10 12:29] LABS: SODIUM 138 mmol/L (136-145)
[2018-05-10 12:33] LABS: ALBUMIN 2.5 g/dL (3.4-5.0); SGOT 29 U/L (15-37); SGPT 30 U/L (30-65); TOTAL BILIRUBIN 0.5 mg/dL (<0.1-1.0); TOTAL PROTEIN 5.9 g/dL (6.4-8.2); TROPONIN-I <0.06 ng/mL (<0.06)
[2018-05-10 12:51] LABS: URINE BILIRUBIN NEGATIVE (Negative); URINE BLOOD 1+ (Negative); URINE CLARITY CLEAR; URINE COLOR YELLOW; URINE GLUCOSE-RANDOM* NEGATIVE (Negative); URINE KETONES NEGATIVE (Negative); URINE LEUKOCYTES-REFLEX 3+ (Negative); URINE NITRITE-REFLEX NEGATIVE (Negative); URINE PROTEIN (DIPSTICK) NEGATIVE (Negative); URINE UROBILINOGEN 0.2 E.U./dl (0.2-1.0)
[2018-05-10 13:06] LABS: CASTS None Seen /LPF (None Seen); SQUAMOUS 4-10 Moderate /LPF (0-3)
[2018-05-10 13:07] LABS: URINE RBC 0-2 Rare /HPF (0-2); URINE WBC-REFLEX 6-15 Few /HPF (0-5)
[2018-05-10 13:08] LABS: BACTERIA-REFLEX 1-9 Few /HPF (None Seen); CRYSTALS None Seen /LPF (None Seen)
== END 2018-05-10 14:00 | disposition home or self-care (01) ==
LOC: ER 11:27
PROVIDERS: Physician Assistant
DX: J45.901 Unspecified asthma with (acute) exacerbation (principal); M19.90 Unspecified osteoarthritis, unspecified site; E03.9 Hypothyroidism, unspecified; I11.0 Hypertensive heart disease with heart failure; I50.9 Heart failure, unspecified; E78.00 Pure hypercholesterolemia, unspecified; I25.2 Old myocardial infarction; F17.210 Nicotine dependence, cigarettes, uncomplicated; Z79.899 Other long term (current) drug therapy; Z93.2 Ileostomy status; Z86.73 Personal history of transient ischemic attack (TIA), and cerebral infarction without residual deficits; Z88.0 Allergy status to penicillin; Z88.6 Allergy status to analgesic agent; Z88.8 Allergy status to other drugs, medicaments and biological substances; Z91.011 Allergy to milk products

== ENCOUNTER 2018-09-24 14:51 | Inpatient (IN) | payer OTHER ==
[~2018-09-24] VITALS: Ht 172.7 cm; Wt 72.9 kg
[~2018-09-24 14:51] MED LIST changes: -BRILINTA60 MG; +BRILINTA90 MG PO; -LIPITOR10 MG; +LIPITOR40 MG PO; -MINOCIN100 MG PO; +MINOCYCLINE HC100 M2 PO; -SUPER B-50 COM1 EACH; +SUPER B-50 COM1 EACH PO; -TOPAMAX 100 MG100 MG PO; +TOPAMAX 25 MG T25 M1 PO
[2018-09-24 14:52] VITALS: BP 101/61
[2018-09-24 15:18] LABS: URINE BILIRUBIN NEGATIVE (Negative); URINE BLOOD NEGATIVE (Negative); URINE CLARITY CLEAR; URINE COLOR YELLOW; URINE GLUCOSE-RANDOM* NEGATIVE (Negative); URINE KETONES NEGATIVE (Negative); URINE LEUKOCYTES-REFLEX TRACE (Negative); URINE NITRITE-REFLEX NEGATIVE (Negative); URINE PROTEIN (DIPSTICK) NEGATIVE (Negative); URINE SPECIFIC GRAVITY >= 1.030 (1.005-1.035); URINE UROBILINOGEN 0.2 E.U./dl (0.2-1.0)
[2018-09-24 15:23] LABS: ABSOLUTE NEUTROPHILS 4.9 thou/uL (1.4-8.2); BASOPHILS 0.9 % (0.0-2.0); EOSINOPHILS 1.4 % (0.0-3.0); HEMOGLOBIN 14.9 gm/dL (12.0-15.0); LYMPHOCYTES 17.5 % (24.0-44.0); MCH 31.7 pg (26.0-34.0); MCHC 33.9 g/dL (28.0-37.0); MCV 93.6 fL (80.0-100.0); MONOCYTES 7.1 % (1.0-8.0); PLATELET COUNT 106 thou/uL (150-400); POLYS 73.1 % (36.0-66.0); RDW 13.6 % (10.5-14.5); WBC 6.8 thou/uL (4.0-11.0)
[2018-09-24 15:29] LABS: CALCIUM 9.3 mg/dL (8.5-10.1); CREATININE 0.9 mg/dL (0.6-1.0); POTASSIUM 3.7 mmol/L (3.5-5.1)
[2018-09-24 15:35] LABS: ALBUMIN 3.3 g/dL (3.4-5.0); TOTAL BILIRUBIN 0.5 mg/dL (<0.1-1.0); TOTAL PROTEIN 6.3 g/dL (6.4-8.2)
[2018-09-24] MEDS ORDERED: FISH OIL 1,001000 M2 PO (15:42)
[2018-09-24] MEDS ORDERED: PREVACID 24HR15 MG PO (15:43)
[2018-09-24] MEDS ORDERED: ZESTRIL5 MG PO (15:43)
[2018-09-24] MEDS ORDERED: PROBIOTIC1 EAC2 PO (15:43)
[2018-09-24] MEDS ORDERED: BENTYL 20 MG TA20 M1 PO (15:43)
[2018-09-24] MEDS ORDERED: ONDANSETRON HCL4 M2 PO ×2 (15:44→17:21)
[2018-09-24] MEDS ORDERED: SERTRALINE HCL50 MG PO (15:44)
[2018-09-24] MEDS ORDERED: LIORESAL 10 MG10 MG PO (15:44)
[2018-09-24] MEDS ORDERED: ZANTAC 150MG T150 MG PO (15:44)
[2018-09-24 19:41] VITALS: BP 119/41
[2018-09-24 20:19] VITALS: BP 93/48
[2018-09-24 20:35] VITALS: BP 120/52
[2018-09-25 00:51] VITALS: BP 159/89
[2018-09-25 02:06] VITALS: BP 134/65
[2018-09-25 04:35] VITALS: BP 109/43
[2018-09-25 05:14] LABS: CALCIUM 8.1 mg/dL (8.5-10.1); CREATININE 0.9 mg/dL (0.6-1.0); POTASSIUM 3.3 mmol/L (3.5-5.1)
--- NOTE | 2018-09-25 06:51 | NUR ---
Received pt from ED at 1845. Pt came in complaining of N/V, weakness and also back pain. She was given hydrocodon in the ED. Pt is up at rory. She has soars around the vaginal area. Picture taken and filled in chart. IV is on right arm with NS @75. Shes on clear diet. Call light within reach. No identified needs at the moment. Will continue to monitor.
[2018-09-25 08:28] VITALS: BP 108/52
--- NOTE | 2018-09-25 14:34 | NUR ---
PT ADMITTED RELATED TO ORTHOSTATIC HYPOTENSION, DIZZINESS AND DIARRHEA. CM REVIEWED CHART AND SPOKE WITH CARE TEAM. CM MET WITH PT AT BEDSIDE THIS DAY. PT IS A&O X4. CM ROLE INTRODUCED. PT INDICATED SHE LIVES IN A HOUSE WITH HER SON AND THREE ROOMMATES. PT INDICATED THAT THERE IS A RAMP TO ENTER THE HOME. PT INDICATED THAT SHE HAD BEEN INDEPENDENT WITH GAIT PT AND THAT SON HAD ASSISTED WITH SOME ADLS. PT INDICATED SHE ANTICIPATES RETURNING HOME ONCE MEDICALLY STABLE. CM TO FOLLOW INDICATED WITH DC PLANNING.
--- NOTE | 2018-09-25 15:12 | NUR ---
ASSUMED CARE AT 0700. AXOX4. DIET ADVANCED AND BRADYCARDIA ADDRESSED WITH . TELE STOPPEED PER BRADYCARDIA BEING HER BASELINE. STOOL SENT DOWN FOR LABS. VSS. NO S/S ACUTE DISTRESS NOTED OR REPORTED AT THIS TIME. WILL CONT TO MONITOR FOR ANY CHANGES IN CONDTION.
[2018-09-25 15:20] VITALS: BP 99/46
--- NOTE | 2018-09-25 16:06 | NUR ---
WOUND CONSULT: PT. WAS SEEN TODAY BY DR. OROZCO AND MYSELF. PT. SUFFERES FROM HIDRADENITIS SUPPURATIVA IN HER GROIN. PT. HAS BEEN UNDERGOING TREATMENT FOR THIS FOR THE PAST SEVERAL MONTHS. RECOMMENDATIONS: KEEP AREA CLEAN AND DRY, UTLIZE HIBACLENASE SOAP DAILY PT. AND STAFF NURSE WERE INSTRUCTED ON PLAN OF CARE.
--- NOTE | 2018-09-25 16:23 | EKG ---
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: WYATT : 1970 Requested By: Haleigh Monaco Order Number: [id number] MD: Jorge Marc Measurements Intervals [place] Rate: 42 P: 65 SC: 137 QRS: 55 QRSD: 108 T: -37 QT: 509 QTc: 426 Interpretive Statements Sinus bradycardia Compared to ECG 05/10/2018 11:37:45 Electronically Signed On 09-25-2018 16:22:58 RN HEMODIALYSIS CHARGE by Jorge Marc [email or web address] ��������������������������������������������� <ELECTRONICALLY SIGNED> ���������������������������������������� By: Jorge Marc MD ��������������������������������������������� 09/25/18 1622 1603 02 Jorge Marc MD /MELINDA
[2018-09-25 19:06] VITALS: BP 113/55
--- NOTE | 2018-09-26 03:57 | NUR ---
PT AOX4 PT USED CALL LIGHT EFFECTIVELY PT SLEPT MOST OF THE NIGHT NO ISSUES OVERNIGHT.
[2018-09-26 05:27] VITALS: BP 98/42
[2018-09-26 05:48] LABS: CALCIUM 7.7 mg/dL (8.5-10.1); CREATININE 0.9 mg/dL (0.6-1.0); POTASSIUM 3.8 mmol/L (3.5-5.1)
[2018-09-26 07:47] VITALS: BP 106/57
--- NOTE | 2018-09-26 15:03 | NUR ---
CARE TEAM INDICATED THAT PLAN IS FOR PT TO DISHCARGE ONCE OSTOMY OUTPUT DECREASES. PT IS TO TRANSFER TO SENIOR SUITES THIS DAY. CM TO FOLLOW INDIACATED SHOULD ANY DC NEEDS ARISE.
--- NOTE | 2018-09-26 15:11 | NUR ---
WOUND FOLLOW UP: PT. WAS SEEN TODAY BY DR. OROZCO AND MYSELF. PT. GROIN IS STABLE AT THIS TIME AND PLAN TO SHOWER TODAY. RECOMMENDATIONS: CONTINUE WITH CURRENT PLAN OF CARE. PT. AND STAFF NURSE WERE INSTRUCTED ON PLAN OF CARE.
--- NOTE | 2018-09-26 15:34 | NUR ---
PT STABLE THROUGHOUT SHIFT. PT C/O PAIN WHICH WAS ADDRESSED WITH MEDICATION. PT TRANSFERRED TO SR. SUITES. REPORT CALLED.
[2018-09-26 16:22] VITALS: BP 103/55
--- NOTE | 2018-09-26 16:55 | NUR ---
RECEIVED PT FROM 4W THIS AFTERNOON. PT AWAKE, ALERT/ORIENTED X4. REPORTED PAIN TO HER BACK/HIPS RATED 7/10. FENTANYL GIVEN. ALSO REPORTED SOME NAUSEA, ZOFRAN GIVEN WELL. NEW IV STARTED TO RIGHT FOREARM PREVIOUS IV DEVELOPED PHLEBITIS. ASSISTED PT WITH SHOWER. PT CLEANSED GROIN WITH HIBECLENSE WHILE SHOWERING. PT ALSO CHANGED OWN COLOSTOMY. PT TOLERATED ACTIVITY WELL. NO NEW CONCERNS AT THIS TIME. WILL CONTINUE CURRENT CARE.
[2018-09-26 19:55] VITALS: BP 103/55
--- NOTE | 2018-09-27 03:17 | NUR ---
A/O, calm and cooperative;c/o generalized pain, pain medication given and worked; no n/v; vss, afebriel; illeostomy bag works; patient is lying in bed, with eyes closed. will keep monitoring.
[2018-09-27 08:01] VITALS: BP 99/36
[2018-09-27 10:19] VITALS: BP 93/42
--- NOTE | 2018-09-27 14:31 | NUR ---
ASSUMED CARE OF PATIENT THIS MORNING. PATIENT IS ALERT AND ORIENTED X4. SHE IS UP SBA WHEN AMBULATING. PATIENT HAS AN ILEOSTOMY WHICH SHE DOES HER OWN EMPTYING AND CLEANING OF THE BAG. NO ABNORMAL ASSESSMENT FINDINGS. PATIENT HAS HAD A LOW BP AND HR TODAY AND WHEN RECHECKED THE PATIENT'S BP AND HR STILL REMAINED LOW. SHE WANTED SOMETHING FOR PAIN AND TYLENOL WAS GIVEN RATED PAIN 8/10 AND WHEN REASSESSED IT WAS PARTIAL RELIEF 6/10. PATIENT INFORMED ANDRES VILLAFUERTE THAT HER VITAL SIGNS NORMALLY RUN ON THE LOWER SIDE. HE WAS OK WITH GIVING HER HYDROCODONE 1 TAB Q6H. PATIENT STILL COMPLAINED OF PAIN 8/10 AND WAS GIVEN A HYDROCODONE AND WHEN REASSESSED SHE RATED IT 6/10. PATIENT IS CURRENTLY RESTING IN BED AND CALLS OUT APPROPRIATELY FOR NEEDED ASSISTANCE.
[2018-09-27 17:50] VITALS: BP 125/53
[2018-09-27 19:43] VITALS: BP 118/45
--- NOTE | 2018-09-28 06:55 | NUR ---
Pt a/o x 4. RA. C/o chronic back pain, pain meds given per order. Denies dizziness when up in room or to BRM. VSS. Up with standby assist as needed. Pt resting in bed comfortably with eyes closed at this time. No apparent distress noted. Pt refused bed alarm. Fall precautions maintained. Call light within reach. Will continue to monitor.
[2018-09-28 08:00] VITALS: BP 114/55
[2018-09-28 14:45] VITALS: BP 114/55
--- NOTE | 2018-09-28 17:33 | NUR ---
PATIENT CARE WAS ASSUMED AT 0715.PATIENT IS ALERT AND ORIENTED X4.PATIENT HAS NO COMPLAINS OF PAIN AT THIS TIME.WAS GIVEN PAIN MED IN THE AM.PATIENT IS RESTING IN BED.PATIENT IS ABLE TO GET UP WITH STAND BY ASSIST.PATIENT'S CONCERN WAS BEING DISCHARGED TODAY.CALL LIGHT, PHONE, AND PERSONAL BELONGINGS ARE WITHIN REACH.
--- NOTE | 2018-09-28 18:15 | NUR ---
PATIENT WAS DISCHARGED TO GO HOME.PATIENT WAS GIVEN A PAIN MED BEFORE DISCHARGE.IV WAS TAKEN OUT.PATIENT WAS TAKEN TO TO ER TO GET A CAB VOUCHER TO GO HOME.PATIENT WAS GIVEN PAPERWORK FOR DISCHARGE.PT HAS NO COMPLAINS AT THIS TIME PT WAS TAKEN OUT VIA W/C TO ER TO WAIT FOR CAB.
--- NOTE | 2018-09-29 08:19 | HC ---
[facility] [place] [address] CONSULTATION Name: ELDON CALLE Room #: [facility]-P [facility] IN M.R.#: [id number] Admission: 09/24/18 ������������������ Attend Phys: Soham Culver MD Discharge: 09/28/18 ������������������ Date of : 66 Report #: [id number] THIS REPORT FOR: //name// CC: Soham Hale DATE OF SERVICE: 09/27/2018 CHIEF COMPLAINT: "Vaginal ulcers." HISTORY OF PRESENT ILLNESS: This is a 48-year-old female patient with extensive history of Crohn's disease. She is status post colectomy and end ileostomy, who was admitted with hypotension, and vertigo. She is noted to have some ulceration in her vaginal or groin region. She states she has a history of hidradenitis and takes minocycline for this. She has had previous surgical intervention. She states it is not entirely resolved. PAST MEDICAL HISTORY: Positive for hypertension, hyperlipidemia, congestive heart failure, cerebrovascular accident, anxiety, asthma, and type 2 diabetes mellitus. ALLERGIES: ALBUTEROL, ADHESIVE TAPE, CODEINE, IBUPROFEN, IODINE, PENICILLIN, LACTOSE. MEDICATIONS: Super B, Topamax, minocycline, calcium, Brilinta, fish oil, probiotic, Prevacid, Bentyl, Zestril, Zofran, Zoloft, Zantac, Zyrtec, vitamin D3, Symbicort, Aldactone, Soma, ipratropium by inhalation. SOCIAL HISTORY: The patient smokes cigarettes 1 to 1-1/2 packs per day. No alcohol use. FAMILY HISTORY: Positive for cerebrovascular accident, heart disease, hypertension, hyperlipidemia, and migraines in her mother. REVIEW OF SYSTEMS: CONSTITUTIONAL: The patient denies fever, chills or weight loss. NEUROLOGICAL: The patient has lightheadedness and vertigo. ENT: The patient denies earache, nasal drainage or sore throat. CARDIOVASCULAR: The patient denies chest pain or palpitations, diaphoresis. PULMONARY: The patient denies cough or shortness of breath. GASTROINTESTINAL: No nausea, vomiting, diarrhea or abdominal pain. ORTHOPEDIC: The patient is aware of the dermatitis in her groin region. Other systems in a 14-point review of systems are negative. PHYSICAL EXAMINATION: VITAL SIGNS: At this time include temperature 37.1, pulse 44, respiration of [facility] [address] [place] [address] CONSULTATION Name: ELDON CALLE Room #: 226-P [facility] IN M.R.#: [id number] Admission: 09/24/18 ������������������ Attend Phys: Soham Culver MD Discharge: 09/28/18 ������������������ Date of : 66 Report #: [id number], blood pressure of 99/46. GENERAL: This is a chronically ill-appearing female patient who appears to be in minimal distress. HEENT: Head normocephalic. Nose is clear. NECK: Supple. LUNGS: Clear. ABDOMEN: Soft. Bowel sounds present. EXTREMITIES: Groin region demonstrates erythema and some drainage and odor, but the groin bilaterally consistent with chronic hidradenitis suppurativa. It is not acutely inflamed. NEUROLOGIC: Alert and moving all 4 extremities spontaneously. LABORATORY DATA: Include sodium 145, potassium 3.3, chloride 114, CO2 23, BUN 19, creatinine 0.9, glucose of 92. Albumin is 3.3. White blood cell count 6.8 with a hemoglobin of 14.9. CLINICAL IMPRESSION: 1. Hidradenitis suppurativa to the groin bilaterally. 2. Hypotension and vertigo. 3. Family history of diabetes mellitus. RECOMMENDATIONS: At this point in time, we will recommend her continuation of her minocycline daily. We will recommend Hibiclens scrubs or cleansing to that area and it will otherwise be left dry and open to air. I do not feel that any surgical intervention will require at this time. We recommend continuing current medications. She is receiving intravenous hydration at present. I appreciate being asked to see her in consultation. ��������������������������������������������� <ELECTRONICALLY SIGNED> ���������������������������������������� By: Crow Lynch MD ��������������������������������������������� 09/29/18 0819 1333 0055 Crow Lynch MD /nt
== END 2018-09-28 18:18 | disposition home or self-care (01) | DRG 312 ==
LOC: ER 14:51 → 4W 19:18 → EROBS 19:18 → 4W 20:00 → SICU 09-26 15:24
PROVIDERS: Nurse Practitioner Family; ADMIT Hospitalist
DX: I95.1 Orthostatic hypotension (principal); I42.9 Cardiomyopathy, unspecified; K50.90 Crohn's disease, unspecified, without complications; I50.40 Unspecified combined systolic (congestive) and diastolic (congestive) heart failure; F41.9 Anxiety disorder, unspecified; G25.81 Restless legs syndrome; J45.909 Unspecified asthma, uncomplicated; M19.90 Unspecified osteoarthritis, unspecified site; I11.0 Hypertensive heart disease with heart failure; E78.5 Hyperlipidemia, unspecified; F32.9 Major depressive disorder, single episode, unspecified; G43.909 Migraine, unspecified, not intractable, without status migrainosus; K21.9 Gastro-esophageal reflux disease without esophagitis; E11.9 Type 2 diabetes mellitus without complications; E86.0 Dehydration; E05.90 Thyrotoxicosis, unspecified without thyrotoxic crisis or storm; E03.9 Hypothyroidism, unspecified; F17.210 Nicotine dependence, cigarettes, uncomplicated; E66.9 Obesity, unspecified; L73.2 Hidradenitis suppurativa; I25.2 Old myocardial infarction; Z68.24 Body mass index [BMI] 24.0-24.9, adult; Z71.6 Tobacco abuse counseling; Z98.891 History of uterine scar from previous surgery; Z86.73 Personal history of transient ischemic attack (TIA), and cerebral infarction without residual deficits; Z93.2 Ileostomy status; Z79.82 Long term (current) use of aspirin; Z79.899 Other long term (current) drug therapy; Z88.5 Allergy status to narcotic agent; Z88.0 Allergy status to penicillin; Z88.8 Allergy status to other drugs, medicaments and biological substances; Z91.041 Radiographic dye allergy status; Z83.3 Family history of diabetes mellitus; Z82.3 Family history of stroke; Z82.49 Family history of ischemic heart disease and other diseases of the circulatory system; Z82.0 Family history of epilepsy and other diseases of the nervous system
CPT/HCPCS: 10040; 10045; 10047; 15002

== ENCOUNTER 2018-10-23 08:22 | Inpatient (IN) | payer OTHER ==
[~2018-10-23] VITALS: Ht 172.7 cm; Wt 69.9 kg
[~2018-10-23 08:22] MED LIST changes: +BENTYL 20 MG TA20 M1 PO; +FISH OIL 1,001000 M2 PO; +LIORESAL 10 MG10 MG PO; +PREVACID 24HR15 MG PO; +PROBIOTIC1 EAC2 PO; +ZANTAC 150MG T150 MG PO; +ZESTRIL5 MG PO
[2018-10-23 09:09] LABS: CALCIUM 9.2 mg/dL (8.5-10.1); CREATININE 0.9 mg/dL (0.6-1.0); POTASSIUM 3.8 mmol/L (3.5-5.1)
[2018-10-23 09:14] LABS: ALBUMIN 3.1 g/dL (3.4-5.0); TOTAL BILIRUBIN 0.6 mg/dL (<0.1-1.0); TOTAL PROTEIN 6.6 g/dL (6.4-8.2)
[2018-10-23 09:17] LABS: ABSOLUTE NEUTROPHILS 9.4 thou/uL (1.4-8.2); BASOPHILS 0.1 % (0.0-2.0); EOSINOPHILS 0.3 % (0.0-3.0); HEMATOCRIT 43.2 % (37.0-47.0); HEMOGLOBIN 14.5 gm/dL (12.0-15.0); LYMPHOCYTES 4.5 % (24.0-44.0); MCH 32.2 pg (26.0-34.0); MCHC 33.7 g/dL (28.0-37.0); MCV 95.5 fL (80.0-100.0); POLYS 88.1 % (36.0-66.0); RBC 4.52 mil/uL (4.20-5.00); RDW 14.5 % (10.5-14.5); WBC 10.7 thou/uL (4.0-11.0)
[2018-10-23 09:38] LABS: PLATELET COUNT 159 thou/uL (150-400)
[2018-10-23 10:50] VITALS: BP 142/75
[2018-10-23 11:44] VITALS: BP 143/80
[2018-10-23 15:40] VITALS: BP 124/69
[2018-10-23 17:23] VITALS: BP 139/73
[2018-10-23 17:51] VITALS: BP 114/63
[2018-10-23 18:41] VITALS: BP 118/79
--- NOTE | 2018-10-23 19:57 | NUR ---
PT ARRIVED TO ROOM FROM ED IN STABLE CONDITION AT APPROX 1800. ASSESSMENT COMPLETED. A&O,X4. C/O ABD PAIN AND N/V, MEDS GIVEN ORDERED. MAINTAINING NPO STATUS. ACHS, NO INSULIN REQURIED. PT REPORTS NOT DIABETIC AFTER WEIGHT LOSS, NO INSULIN OR ANTIDIABETIC MEDS AT HOME. NO OXYGEN AT HOME, ROOM AIR. RLQ ILEOSTOMY IN PLACE, PT REPORTS WATERY CONTENT NOT AT BASELINE. PT HAS PUBIC "ABSCESSES" ALONG BIKINI LINE, WEEPING AT TIMES, MEDS PRESCRIBED FROM HOME. PT BROUGHT ALL HOME MEDS, SENT TO PHARMACY. PT IN STABLE CONDITION.
[2018-10-24 04:21] LABS: CALCIUM 8.7 mg/dL (8.5-10.1); CREATININE 0.8 mg/dL (0.6-1.0); MAGNESIUM 1.5 mg/dL (1.8-2.4); POTASSIUM 3.2 mmol/L (3.5-5.1)
[2018-10-24 04:25] VITALS: BP 117/42
[2018-10-24 04:43] LABS: ABSOLUTE NEUTROPHILS 4.9 thou/uL (1.4-8.2); BASOPHILS 0.2 % (0.0-2.0); EOSINOPHILS 0.5 % (0.0-3.0); HEMATOCRIT 37.5 % (37.0-47.0); LYMPHOCYTES 13.7 % (24.0-44.0); MCH 31.9 pg (26.0-34.0); MCHC 33.5 g/dL (28.0-37.0); MCV 95.4 fL (80.0-100.0); MONOCYTES 9.4 % (1.0-8.0); PLATELET COUNT 148 thou/uL (150-400); POLYS 76.2 % (36.0-66.0); RBC 3.93 mil/uL (4.20-5.00); RDW 14.4 % (10.5-14.5); WBC 6.5 thou/uL (4.0-11.0)
[2018-10-24 05:17] LABS: HEMOGLOBIN 12.5 gm/dL (12.0-15.0)
--- NOTE | 2018-10-24 06:32 | NUR ---
PT IS ALERT AND ORIENTED. NPO. NO EMESIS. BEEN GETTING FENTANYL FOR ABDOMINAL CRAMPING PAIN. UP WITH ASSIT TO THE BATHROOM. ILEOSTOMY WITH LIQUID STOOL. PT TAKES CARE OF OSTOMY BAG. IVF INFUSING. <70 BLOOD SUGAR AT MIDNIGHT TREATED PER PROTOCOL. AFEBRILE.
[2018-10-24 07:50] VITALS: BP 124/48
--- NOTE | 2018-10-24 09:48 | NUR ---
PT LEFT IN STABLE CONDITION VIA WHEELCHAIR FOR KUB AT 0947. WILL WAIT FOR RETURN.
--- NOTE | 2018-10-24 10:42 | NUR ---
ASSUMED CARE OF PT AT 0700. ASSESSMENT COMPLETED. A&O,X4 - ANXIOUS AT TIMES. C/O ABD PAIN, PAIN MEDS GIVEN ORDERED. REPORTS IV BURNING, IV TEAM NOTIFIED. RLQ ILEOSTOMY IN PLACE, WATERY STOOL NOTED. MAINTAINING NPO STATUS. DR. STORY AT BEDSIDE. WILL CONTINUE TO MONITOR.
--- NOTE | 2018-10-24 12:51 | NUR ---
ASSESSMENT-PT LIVES AT HOME WITH FAMILY AND PLANS TO RETURN THERE AT [place]. PT SAYS SHE WILL NEED A RIDE HOME. PT HAS A WALKER IF NEEDED BUT MOSTLY WALKS ON HER OWN. PT DOES HER OWN ADLS. PT USUALLY DOES HER OWN HOUSEHOLD THINGS WHEN FELLING WELL BUT FAMILY HELPS IF SHE IS NOT. PT HAS A RAMP TO ENTER THE HOME AND EVERYTHING ALL ON ONE LEVEL INSIDE. PT SAYS SHE IS UAUALLY ABLE TO GET HER MEDICINE WITHOUT DIIFICULTY.
--- NOTE | 2018-10-24 17:00 | NUR ---
IV TEAM PLACED PERIPHERAL RIGHT UPPER ARM. PT DRANK ORAL CONTRAST AND WENT DOWN TO CT ENTEROGRAPHY. PT IN STABLE CONDITION. PT TRANSFERRED TO . NO OTHER CHANGE IN STATUS.
[2018-10-24 17:43] VITALS: BP 139/75
--- NOTE | 2018-10-24 17:43 | NUR ---
PATIENT TRANSFERRED FROM 4E ROOM 427 TO SICU ROOM 224, PATIENT A&OX4, MAKES NEEDS KNOWN, REPORTED PAIN 03/14 TO ABD, RECEIVED PRN FENTANYL 50MCG IV PUSH, RLQ ILEOSTOMY INTACT, RUE IV INTACT, NS@125ML/HR RESTARTED AT THIS TIME, PATIENT UP AD KIANNA WITH STEADY GAIT, PATIENT TO BE SET UP FOR SHOWER PER REQUEST, PERSONAL BELONGINGS AND CALL LIGHT IN REACH, WILL CONTINUE TO MONITOR
[2018-10-24 19:02] VITALS: BP 124/77
[2018-10-25 08:41] VITALS: BP 120/67
--- NOTE | 2018-10-25 15:19 | NUR ---
ASSUMED CARE AT 0700, SHIFT ASSESSMENT DONE, MEDS GIVEN, VSS. ADVANCED TO FULL LIQUID DIET, TOLERATING WELL. REPORTED PAIN EARLY THIS AM, PRN PAIN MED GIVEN. ILLESTOMY PRODUCING BROWN LIQUID. DENIES ANY NAUSEA. IV FLUIDS DC'D. WILL CONTINUE TO ASSESS AND ASSIST WITH ADLs.
[2018-10-25 20:13] VITALS: BP 112/70
--- NOTE | 2018-10-26 03:29 | NUR ---
PATIENT ALERT AND ORIENTED X4. UP ADLIB IN ROOM. MEDICATED FOR PAIN AND NAUSEA X1 AT TIME OF THIS NOTE. BS MONITORED PER ORDER, NO INSULIN NEEDED. IV PATENT. PLEASANT AND COOPERATIVE WITH CARE. NO EMESIS. RESTING QUIETLY. WILL MONITOR.
[2018-10-26 08:11] VITALS: BP 115/61
[2018-10-26] MEDS ORDERED: MIRALAX17 GM PO (08:58)
[2018-10-26] MEDS ORDERED: BENTYL 20 MG TA20 M1 PO (09:01)
[2018-10-26 12:55] VITALS: BP 115/61
--- NOTE | 2018-10-26 14:19 | NUR ---
ASSUMED CARE AT 0700, SHIFT ASSESSMENT DONE, MEDS GIVEN, VSS. ADVANCED TO REGUALR DIET, TOLEARATING WELL. DISCHARGE ORDERS RECEIVED. PATIENT WAS GIVEN PAPER WORK AND SCRIPTS. PERIPHERAL IV WAS TAKEN OUT. PATIENT REQUESTED A CAB VOUCHER, ROQUE PFEIFFER NOTIFED. CAB VOUCHER RECEIVED.
--- NOTE | 2018-10-26 15:15 | NUR ---
LEFT THE FLOOR AT 1500 WITH NURSING STAFF, LEFT WITH CAB.
== END 2018-10-26 15:16 | disposition home or self-care (01) | DRG 389 ==
LOC: ER 08:22 → EROBS 10:47 → 4E 17:55 → ENTRNSPT 10-24 16:20 → SICU 10-24 16:49
PROVIDERS: Emergency Medicine; Nurse Practitioner; ADMIT Hospitalist
DX: K91.31 Postprocedural partial intestinal obstruction (principal); I50.42 Chronic combined systolic (congestive) and diastolic (congestive) heart failure; K50.012 Crohn's disease of small intestine with intestinal obstruction; J45.909 Unspecified asthma, uncomplicated; G89.4 Chronic pain syndrome; F32.9 Major depressive disorder, single episode, unspecified; F41.9 Anxiety disorder, unspecified; E11.9 Type 2 diabetes mellitus without complications; E03.9 Hypothyroidism, unspecified; Y83.8 Other surgical procedures as the cause of abnormal reaction of the patient, or of later complication, without mention of misadventure at the time of the procedure; I11.0 Hypertensive heart disease with heart failure; K43.5 Parastomal hernia without obstruction or gangrene; F17.210 Nicotine dependence, cigarettes, uncomplicated; M19.90 Unspecified osteoarthritis, unspecified site; E78.5 Hyperlipidemia, unspecified; I25.2 Old myocardial infarction; Z79.1 Long term (current) use of non-steroidal anti-inflammatories (NSAID); Z79.82 Long term (current) use of aspirin; Z79.899 Other long term (current) drug therapy; Z86.73 Personal history of transient ischemic attack (TIA), and cerebral infarction without residual deficits; Z88.6 Allergy status to analgesic agent; Z91.041 Radiographic dye allergy status; Z88.5 Allergy status to narcotic agent; Z88.8 Allergy status to other drugs, medicaments and biological substances; Z91.048 Other nonmedicinal substance allergy status; Z98.891 History of uterine scar from previous surgery; Z71.6 Tobacco abuse counseling; Y92.89 Other specified places as the place of occurrence of the external cause; Z79.891 Long term (current) use of opiate analgesic
CPT/HCPCS: 10084; 15002

== ENCOUNTER 2018-11-19 16:37 | Emergency (ER) | payer OTHER ==
[~2018-11-19] VITALS: Ht 172.7 cm; Wt 77.1 kg
[~2018-11-19 16:37] MED LIST changes: +MIRALAX17 GM PO
[2018-11-19 17:34] LABS: ANION GAP 14 mmol/L (7-16); BUN 27 mg/dL (7-18); CALCIUM 8.8 mg/dL (8.5-10.1); CHLORIDE 106 mmol/L (98-107); CO2 18 mmol/L (21-32); CREATININE 1.2 mg/dL (0.6-1.0); GLUCOSE 93 mg/dL (74-106); POTASSIUM 4.3 mmol/L (3.5-5.1); SODIUM 138 mmol/L (136-145)
[2018-11-19 17:45] LABS: ALBUMIN 2.7 g/dL (3.4-5.0); MAGNESIUM 1.3 mg/dL (1.8-2.4); SGOT 32 U/L (15-37); SGPT 32 U/L (30-65); TOTAL BILIRUBIN 0.3 mg/dL (<0.1-1.0); TOTAL PROTEIN 5.4 g/dL (6.4-8.2); TROPONIN-I <0.06 ng/mL (<0.06)
[2018-11-19 17:54] LABS: ABSOLUTE NEUTROPHILS 4.9 thou/uL (1.4-8.2); BASOPHILS 0.8 % (0.0-2.0); EOSINOPHILS 0.9 % (0.0-3.0); HEMATOCRIT 39.3 % (37.0-47.0); HEMOGLOBIN 13.2 gm/dL (12.0-15.0); LYMPHOCYTES 15.3 % (24.0-44.0); MCH 32.1 pg (26.0-34.0); MCHC 33.7 g/dL (28.0-37.0); MCV 95.5 fL (80.0-100.0); MONOCYTES 7.8 % (1.0-8.0); PLATELET COUNT 112 thou/uL (150-400); POLYS 75.2 % (36.0-66.0); RBC 4.11 mil/uL (4.20-5.00); RDW 14.2 % (10.5-14.5); WBC 6.6 thou/uL (4.0-11.0)
[2018-11-19 20:27] VITALS: BP 91/61
--- NOTE | 2018-11-20 08:59 | EKG ---
[place] [address] [facility] [email or web address] [address] ELECTROCARDIOGRAM REPORT Name: ELDON CALLE Room #: DEP 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: [facility] : 1970 Requested By: Parker Bonilla Order Number: [id number] MD: Lino Cerda Measurements Intervals [place] Rate: 49 P: 71 PA: 135 QRS: 64 QRSD: 100 T: 44 QT: 494 QTc: 447 Interpretive Statements Sinus bradycardia Ventricular premature complex Compared to ECG 09/24/2018 16:03:06 Ventricular premature complex(es) now present Electronically Signed On 11-20-2018 8:59:32 CDT by Lino Cerda [email or web address] ��������������������������������������������� <ELECTRONICALLY SIGNED> ���������������������������������������� By: Lino Cerda MD, [facility] ��������������������������������������������� 11/20/18 0859 1720 19 Lino Cerda MD, FACC /EPI
== END 2018-11-19 20:28 | disposition home or self-care (01) ==
LOC: ER 16:37
PROVIDERS: Emergency Medicine
DX: R55 Syncope and collapse (principal); E78.5 Hyperlipidemia, unspecified; E11.9 Type 2 diabetes mellitus without complications; I25.2 Old myocardial infarction; E05.90 Thyrotoxicosis, unspecified without thyrotoxic crisis or storm; I11.0 Hypertensive heart disease with heart failure; I50.9 Heart failure, unspecified; G47.00 Insomnia, unspecified; J45.909 Unspecified asthma, uncomplicated; K22.70 Barrett's esophagus without dysplasia; G43.909 Migraine, unspecified, not intractable, without status migrainosus; K21.9 Gastro-esophageal reflux disease without esophagitis; M19.90 Unspecified osteoarthritis, unspecified site; Z86.73 Personal history of transient ischemic attack (TIA), and cerebral infarction without residual deficits; F17.210 Nicotine dependence, cigarettes, uncomplicated; Z88.0 Allergy status to penicillin; Z88.5 Allergy status to narcotic agent; Z88.6 Allergy status to analgesic agent; Z88.8 Allergy status to other drugs, medicaments and biological substances; Z91.041 Radiographic dye allergy status

== ENCOUNTER 2019-04-03 20:53 | Emergency (ER) | payer OTHER ==
[~2019-04-03] VITALS: Ht 172.7 cm; Wt 74.8 kg
[2019-04-03 22:09] LABS: ABSOLUTE NEUTROPHILS 5.8 thou/uL (1.4-8.2); BASOPHILS 0.7 % (0.0-2.0); EOSINOPHILS 0.9 % (0.0-3.0); HEMOGLOBIN 13.5 gm/dL (12.0-15.0); LYMPHOCYTES 15.4 % (24.0-44.0); MCHC 33.8 g/dL (28.0-37.0); MCV 97.7 fL (80.0-100.0); MONOCYTES 7.9 % (1.0-8.0); PLATELET COUNT 107 thou/uL (150-400); POLYS 75.1 % (36.0-66.0); RDW 14.1 % (10.5-14.5); WBC 7.7 thou/uL (4.0-11.0)
[2019-04-03 22:19] LABS: ANION GAP 10 mmol/L (7-16); BUN 26 mg/dL (7-18); CALCIUM 8.5 mg/dL (8.5-10.1); CHLORIDE 106 mmol/L (98-107); CO2 23 mmol/L (21-32); CREATININE 1.1 mg/dL (0.6-1.0); GLUCOSE 123 mg/dL (74-106); POTASSIUM 4.2 mmol/L (3.5-5.1); SODIUM 139 mmol/L (136-145)
[2019-04-03 22:29] LABS: ALBUMIN 2.4 g/dL (3.4-5.0); LIPASE 173 U/L (73-393); MAGNESIUM 1.3 mg/dL (1.8-2.4); SGOT 57 U/L (15-37); SGPT 73 U/L (30-65); TOTAL BILIRUBIN 0.2 mg/dL (<0.1-1.0); TOTAL PROTEIN 5.5 g/dL (6.4-8.2); TROPONIN-I <0.06 ng/mL (<0.06)
[2019-04-03 23:48] LABS: URINE BILIRUBIN NEGATIVE (Negative); URINE BLOOD NEGATIVE (Negative); URINE CLARITY CLEAR; URINE COLOR YELLOW; URINE GLUCOSE-RANDOM* NEGATIVE (Negative); URINE KETONES NEGATIVE (Negative); URINE LEUKOCYTES-REFLEX NEGATIVE (Negative); URINE NITRITE-REFLEX NEGATIVE (Negative); URINE PROTEIN (DIPSTICK) TRACE (Negative); URINE SPECIFIC GRAVITY 1.015 (1.005-1.035); URINE UROBILINOGEN 0.2 E.U./dl (0.2-1.0)
[2019-04-03] MEDS ORDERED: NORFLEX100 MG PO (23:54)
[2019-04-03] MEDS ORDERED: MAG-OXIDE400 MG PO (23:54)
[2019-04-03] MEDS ORDERED: TRAMADOL 50 MG50 MG PO (23:54)
[2019-04-03] MEDS ORDERED: PRILOSEC OTC20 MG PO (23:54)
[2019-04-03 23:58] LABS: AMP/METHAMP Negative (Negative); BARBITURATES Negative (Negative); BENZODIAZEPINES Negative (Negative); COCAINE Negative (Negative); METHADONE Negative (Negative); OPIATES Negative (Negative); PCP Negative (Negative)
[2019-04-04 00:19] VITALS: BP 113/65
--- NOTE | 2019-04-07 07:56 | EKG ---
[place] [address] [employer] [facility] [place] [address] ELECTROCARDIOGRAM REPORT Name: ELDON CALLE Room #: DEP [facility]#: [id number] Admission: 04/03/19 Attend Phys: Discharge: 04/04/19 Date of : 66 Report #: [id number] THIS REPORT FOR: //name// [facility] ED Test Date: 2019-04-03 Test Time: 21:36:34 Pat Name: ELDON CALLE Department: Room: Gender: F Showroom Consultant: mirlande : 1970 Requested By: Efrain Delgadillo Order Number: [id number] MD: Lino Cerda Measurements Intervals [place] Rate: 61 P: 69 MA: 117 QRS: 56 QRSD: 97 T: 30 QT: 421 QTc: 424 Interpretive Statements Sinus rhythm Borderline short MA interval Compared to ECG 11/19/2018 17:20:55 Sinus bradycardia no longer present Ventricular premature complex(es) no longer present Electronically Signed On 04-07-2019 7:55:53 CDT by Lino Cerda [email or web address] <ELECTRONICALLY SIGNED> By: Lino Cerda MD, [facility] 04/07/19 0755 35 35 Lino Cerda MD, [facility] /EPI
== END 2019-04-04 00:16 ==
LOC: ER 20:53
PROVIDERS: Emergency Medicine
DX: K50.90 Crohn's disease, unspecified, without complications (principal); E83.42 Hypomagnesemia; E78.5 Hyperlipidemia, unspecified; K43.5 Parastomal hernia without obstruction or gangrene; M54.6 Pain in thoracic spine; R94.5 Abnormal results of liver function studies; F41.9 Anxiety disorder, unspecified; F32.9 Major depressive disorder, single episode, unspecified; G25.81 Restless legs syndrome; J45.909 Unspecified asthma, uncomplicated; G43.909 Migraine, unspecified, not intractable, without status migrainosus; E11.9 Type 2 diabetes mellitus without complications; K21.9 Gastro-esophageal reflux disease without esophagitis; M19.90 Unspecified osteoarthritis, unspecified site; E03.9 Hypothyroidism, unspecified; E05.90 Thyrotoxicosis, unspecified without thyrotoxic crisis or storm; I11.0 Hypertensive heart disease with heart failure; I34.0 Nonrheumatic mitral (valve) insufficiency; F17.210 Nicotine dependence, cigarettes, uncomplicated; Z98.890 Other specified postprocedural states; Z86.73 Personal history of transient ischemic attack (TIA), and cerebral infarction without residual deficits; Z86.2 Personal history of diseases of the blood and blood-forming organs and certain disorders involving the immune mechanism; Z88.0 Allergy status to penicillin; Z88.8 Allergy status to other drugs, medicaments and biological substances; Z88.6 Allergy status to analgesic agent; Z91.041 Radiographic dye allergy status; Z91.018 Allergy to other foods; Z91.048 Other nonmedicinal substance allergy status

== ENCOUNTER 2019-06-03 18:22 | Emergency (ER) | payer OTHER ==
[~2019-06-03] VITALS: Ht 172.7 cm; Wt 72.6 kg
[~2019-06-03 18:22] MED LIST changes: +PRILOSEC OTC20 MG PO
[2019-06-03] MEDS ORDERED: NORCO 10-325 T1 EACH PO (19:17)
[2019-06-03 20:50] LABS: ABSOLUTE NEUTROPHILS 4.1 thou/uL (1.4-8.2); BASOPHILS 0.5 % (0.0-2.0); EOSINOPHILS 0.9 % (0.0-3.0); HEMATOCRIT 40.4 % (37.0-47.0); HEMOGLOBIN 13.4 gm/dL (12.0-15.0); LYMPHOCYTES 19.7 % (24.0-44.0); MCH 33.6 pg (26.0-34.0); MCV 101.6 fL (80.0-100.0); MONOCYTES 6.5 % (1.0-8.0); POLYS 72.4 % (36.0-66.0); RBC 3.98 mil/uL (4.20-5.00); RDW 15.3 % (10.5-14.5); WBC 5.6 thou/uL (4.0-11.0)
[2019-06-03 21:02] LABS: ANION GAP 7 mmol/L (7-16); BUN 15 mg/dL (7-18); CALCIUM 8.1 mg/dL (8.5-10.1); CHLORIDE 112 mmol/L (98-107); CO2 26 mmol/L (21-32); GLUCOSE 69 mg/dL (74-106); POTASSIUM 3.5 mmol/L (3.5-5.1); SODIUM 145 mmol/L (136-145)
[2019-06-03 21:05] LABS: APTT 26.8 Seconds (24.5-32.8); INR 1.1; PROTIME 11.4 Seconds (9.3-11.4)
[2019-06-03 21:08] LABS: ALBUMIN 2.2 g/dL (3.4-5.0); MAGNESIUM 1.4 mg/dL (1.8-2.4); SGOT 120 U/L (15-37); SGPT 135 U/L (30-65); TOTAL BILIRUBIN 0.4 mg/dL (<0.1-1.0); TOTAL PROTEIN 5.2 g/dL (6.4-8.2); TROPONIN-I <0.06 ng/mL (<0.06)
[2019-06-03 21:37] LABS: PLATELET COUNT 78 thou/uL (150-400)
[2019-06-03] MEDS ORDERED: MAG-OXIDE400 MG PO (22:17)
[2019-06-03 22:48] VITALS: BP 142/86
--- NOTE | 2019-06-04 08:43 | EKG ---
[place] [address] [facility] [address] ELECTROCARDIOGRAM REPORT Name: ELDON CALLE Room #: [facility]P [id number] Admission: 06/03/19 Attend Phys: Discharge: 06/03/19 Date of : 66 Report #: [id number] THIS REPORT FOR: //name// [facility] ED Test Date: 2019-06-03 Test Time: 18:52:38 Pat Name: ELDON CALLE Department: Room: Gender: F Informatics Consultant: BYRON : 1970 Requested By: Efrain Delgadillo Order Number: [id number] MD: Lino Cerda Measurements Intervals [place] Rate: 54 P: 60 IL: 119 QRS: 62 QRSD: 99 T: 62 QT: 460 QTc: 436 Interpretive Statements Sinus rhythm Ventricular premature complex Baseline wander in lead(s) V1,V2 Compared to ECG 04/03/2019 21:36:34 Ventricular premature complex(es) now present Electronically Signed On 06-04-2019 8:43:44 CDT by Lino Cerda [email or web address] <ELECTRONICALLY SIGNED> By: Lino Cerda MD, [facility] 06/04/19 0843 51 51 Lino Cerda MD, [facility] /EPI
== END 2019-06-03 22:55 | disposition home or self-care (01) ==
LOC: ER 18:22
PROVIDERS: Emergency Medicine
DX: R60.0 Localized edema (principal); E83.42 Hypomagnesemia; E88.09 Other disorders of plasma-protein metabolism, not elsewhere classified; R06.00 Dyspnea, unspecified; D53.9 Nutritional anemia, unspecified; I11.0 Hypertensive heart disease with heart failure; I50.9 Heart failure, unspecified; F41.9 Anxiety disorder, unspecified; F32.9 Major depressive disorder, single episode, unspecified; G43.909 Migraine, unspecified, not intractable, without status migrainosus; K21.9 Gastro-esophageal reflux disease without esophagitis; E11.9 Type 2 diabetes mellitus without complications; J45.909 Unspecified asthma, uncomplicated; M19.90 Unspecified osteoarthritis, unspecified site; E03.9 Hypothyroidism, unspecified; F17.210 Nicotine dependence, cigarettes, uncomplicated; Z98.890 Other specified postprocedural states; Z86.73 Personal history of transient ischemic attack (TIA), and cerebral infarction without residual deficits; Z91.048 Other nonmedicinal substance allergy status; Z88.0 Allergy status to penicillin; Z88.6 Allergy status to analgesic agent; Z88.5 Allergy status to narcotic agent

== ENCOUNTER 2019-06-07 21:37 | Emergency (ER) | payer OTHER ==
[~2019-06-07] VITALS: Ht 172.7 cm; Wt 72.6 kg
[~2019-06-07 21:37] MED LIST changes: +NORCO 10-325 T1 EACH PO
[2019-06-07 22:38] LABS: ANION GAP 8 mmol/L (7-16); BUN 17 mg/dL (7-18); CHLORIDE 107 mmol/L (98-107); CO2 26 mmol/L (21-32); CREATININE 0.9 mg/dL (0.6-1.0); GLUCOSE 81 mg/dL (74-106); POTASSIUM 3.9 mmol/L (3.5-5.1); SODIUM 141 mmol/L (136-145)
[2019-06-07 22:48] LABS: ALBUMIN 2.5 g/dL (3.4-5.0); MAGNESIUM 1.4 mg/dL (1.8-2.4); SGOT 73 U/L (15-37); SGPT 96 U/L (30-65); TOTAL BILIRUBIN 0.4 mg/dL (<0.1-1.0); TOTAL PROTEIN 5.8 g/dL (6.4-8.2); TROPONIN-I <0.06 ng/mL (<0.06)
[2019-06-07 22:53] LABS: APTT 21.8 Seconds (24.5-32.8); PROTIME 10.4 Seconds (9.3-11.4)
[2019-06-07 23:20] LABS: URINE BILIRUBIN NEGATIVE (Negative); URINE BLOOD NEGATIVE (Negative); URINE CLARITY CLEAR; URINE COLOR YELLOW; URINE GLUCOSE-RANDOM* NEGATIVE (Negative); URINE KETONES NEGATIVE (Negative); URINE LEUKOCYTES-REFLEX NEGATIVE (Negative); URINE NITRITE-REFLEX NEGATIVE (Negative); URINE PROTEIN (DIPSTICK) TRACE (Negative); URINE SPECIFIC GRAVITY >= 1.030 (1.005-1.035); URINE UROBILINOGEN 0.2 E.U./dl (0.2-1.0)
[2019-06-07 23:29] LABS: AMP/METHAMP Negative (Negative); BARBITURATES Negative (Negative); BENZODIAZEPINES Negative (Negative); COCAINE Negative (Negative); METHADONE Negative (Negative); OPIATES Negative (Negative); PCP Negative (Negative)
[2019-06-07] MEDS ORDERED: MAG-OXIDE400 MG PO (23:42)
[2019-06-08 00:27] VITALS: BP 141/79
--- NOTE | 2019-06-08 07:47 | EKG ---
[place] [address] [facility] [place] [address] ELECTROCARDIOGRAM REPORT Name: ELDON CALLE Room #: DEP [facility]#: [id number] Admission: 06/07/19 Attend Phys: Discharge: 06/08/19 Date of : 66 Report #: [id number] THIS REPORT FOR: //name// 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1970 Requested By: Efrain Delgadillo Order Number: [id number] MD: Lino Cerda Measurements Intervals [place] Rate: 58 P: 58 ID: 126 QRS: 54 QRSD: 104 T: 52 QT: 444 QTc: 437 Interpretive Statements Sinus rhythm Poor R wave progression Compared to ECG 06/03/2019 18:52:38 Ventricular premature complex(es) no longer present Electronically Signed On 06-08-2019 7:47:17 BIOINFORMATICS TECHNICIAN by Lino Cerda [email or web address] <ELECTRONICALLY SIGNED> By: Lino Cerda MD, [facility] 06/08/19 0747 57 57 Lino Cerda MD, [facility] /EPI
== END 2019-06-08 00:29 | disposition home or self-care (01) ==
LOC: ER 21:37
PROVIDERS: Emergency Medicine
DX: E83.42 Hypomagnesemia (principal); E88.09 Other disorders of plasma-protein metabolism, not elsewhere classified; R20.2 Paresthesia of skin; R94.5 Abnormal results of liver function studies; F41.9 Anxiety disorder, unspecified; F32.9 Major depressive disorder, single episode, unspecified; G25.81 Restless legs syndrome; J45.909 Unspecified asthma, uncomplicated; G43.909 Migraine, unspecified, not intractable, without status migrainosus; E11.9 Type 2 diabetes mellitus without complications; K21.9 Gastro-esophageal reflux disease without esophagitis; K50.90 Crohn's disease, unspecified, without complications; M19.90 Unspecified osteoarthritis, unspecified site; E78.5 Hyperlipidemia, unspecified; I11.0 Hypertensive heart disease with heart failure; I50.40 Unspecified combined systolic (congestive) and diastolic (congestive) heart failure; Z88.0 Allergy status to penicillin; Z91.041 Radiographic dye allergy status; Z88.5 Allergy status to narcotic agent; Z88.6 Allergy status to analgesic agent; Z88.8 Allergy status to other drugs, medicaments and biological substances; Z91.011 Allergy to milk products; Z86.73 Personal history of transient ischemic attack (TIA), and cerebral infarction without residual deficits; Z79.899 Other long term (current) drug therapy; Z87.440 Personal history of urinary (tract) infections; Z98.890 Other specified postprocedural states

== ENCOUNTER 2019-07-02 14:32 | Emergency (ER) | payer OTHER ==
[~2019-07-02] VITALS: Ht 172.7 cm; Wt 72.6 kg
[2019-07-02] MEDS ORDERED: SOMA350 MG PO (14:48)
[2019-07-02] MEDS ORDERED: AMBIEN5 MG PO (14:49)
[2019-07-02] MEDS ORDERED: LIDODERM1 EACH TRANSDERM (15:01)
[2019-07-02 15:38] VITALS: BP 140/69
== END 2019-07-02 15:45 | disposition home or self-care (01) ==
LOC: ER 14:32
DX: M46.1 Sacroiliitis, not elsewhere classified (principal); I10 Essential (primary) hypertension; E11.9 Type 2 diabetes mellitus without complications; E03.9 Hypothyroidism, unspecified; E78.5 Hyperlipidemia, unspecified; J45.909 Unspecified asthma, uncomplicated; G43.909 Migraine, unspecified, not intractable, without status migrainosus; K21.9 Gastro-esophageal reflux disease without esophagitis; K50.90 Crohn's disease, unspecified, without complications; M19.90 Unspecified osteoarthritis, unspecified site; F41.9 Anxiety disorder, unspecified; F32.9 Major depressive disorder, single episode, unspecified; F17.210 Nicotine dependence, cigarettes, uncomplicated; Z87.440 Personal history of urinary (tract) infections; Z98.890 Other specified postprocedural states; Z86.73 Personal history of transient ischemic attack (TIA), and cerebral infarction without residual deficits; Z91.048 Other nonmedicinal substance allergy status; Z88.0 Allergy status to penicillin; Z88.6 Allergy status to analgesic agent; Z88.8 Allergy status to other drugs, medicaments and biological substances

== ENCOUNTER 2019-10-03 16:11 | Inpatient (IN) | payer OTHER ==
[~2019-10-03] VITALS: Ht 172.7 cm; Wt 71.2 kg
[2019-10-03 16:11] VITALS: BP 102/55
[~2019-10-03 16:11] MED LIST changes: +AMBIEN5 MG PO; +LIDODERM1 EACH TRANSDERM; +SOMA350 MG PO
[2019-10-03] MEDS ORDERED: PROAIR HFA8.5 GM INH (16:32)
[2019-10-03 16:38] LABS: ABSOLUTE NEUTROPHILS 6.6 thou/uL (1.4-8.2); BASOPHILS 0.5 % (0.0-2.0); EOSINOPHILS 1.1 % (0.0-3.0); HEMATOCRIT 40.1 % (37.0-47.0); HEMOGLOBIN 13.2 gm/dL (12.0-15.0); LYMPHOCYTES 13.8 % (24.0-44.0); MCH 31.8 pg (26.0-34.0); MCHC 33.1 g/dL (28.0-37.0); MCV 96.2 fL (80.0-100.0); MONOCYTES 7.9 % (1.0-8.0); PLATELET COUNT 145 thou/uL (150-400); POLYS 76.7 % (36.0-66.0); RBC 4.16 mil/uL (4.20-5.00); RDW 12.6 % (10.5-14.5); WBC 8.6 thou/uL (4.0-11.0)
[2019-10-03 16:52] LABS: ANION GAP 17 mmol/L (7-16); BUN 48 mg/dL (7-18); CALCIUM 10.4 mg/dL (8.5-10.1); CHLORIDE 101 mmol/L (98-107); CO2 19 mmol/L (21-32); CREATININE 3.3 mg/dL (0.6-1.0); GLUCOSE 147 mg/dL (74-106); POTASSIUM 3.4 mmol/L (3.5-5.1); SODIUM 137 mmol/L (136-145)
[2019-10-03 16:53] LABS: TROPONIN-I <0.06 ng/mL (<0.06)
[2019-10-03 19:56] VITALS: BP 108/43
[2019-10-03 20:40] VITALS: BP 102/45
[2019-10-03 21:30] VITALS: BP 110/57
[2019-10-03 23:40] VITALS: BP 100/56
[2019-10-04 04:00] VITALS: BP 103/61
[2019-10-04 05:22] LABS: HEMATOCRIT 37.9 % (37.0-47.0); HEMOGLOBIN 12.6 gm/dL (12.0-15.0); MCH 31.8 pg (26.0-34.0); MCHC 33.1 g/dL (28.0-37.0); MCV 96.1 fL (80.0-100.0); RBC 3.95 mil/uL (4.20-5.00); RDW 12.5 % (10.5-14.5); WBC 6.8 thou/uL (4.0-11.0)
[2019-10-04 05:50] LABS: ALBUMIN 3.5 g/dL (3.4-5.0); CALCIUM 9.3 mg/dL (8.5-10.1); MAGNESIUM 1.4 mg/dL (1.8-2.4); POTASSIUM 3.2 mmol/L (3.5-5.1); TOTAL BILIRUBIN 0.2 mg/dL (<0.1-1.0); TOTAL PROTEIN 6.9 g/dL (6.4-8.2)
--- NOTE | 2019-10-04 06:20 | NUR ---
ASSUMED CARE AT 0100. ASSESSMENT COMPLETED, PT DENIED CHEST PAIN OR SOB. C/O NEEDING TO SMOKE AND WANTING A NICOTINE PATCH; APPLIED PATCH TO LEFT SHOULDER. HAS BEEN SB IN 50'S WITH A BBB. NO OTHER CONCERNS, WILL CONTINUE TO MONITOR.
--- NOTE | 2019-10-04 08:06 | NUR ---
0705 report received from Chanell patient is sleeping at this time.
[2019-10-04 08:32] VITALS: BP 106/53
--- NOTE | 2019-10-04 10:05 | EKG ---
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: sarath : 1970 Requested By: Veronica Slater Order Number: [id number] MD: Willie Leggett Measurements Intervals [place] Rate: 82 P: 55 OK: 118 QRS: 77 QRSD: 105 T: 35 QT: 412 QTc: 482 Interpretive Statements Sinus rhythm Frequent PVCs Borderline short OK interval Nonspecific ST segment abnormalities Compared to ECG 06/07/2019 21:58:12 Ventricular premature complex(es) now present Electronically Signed On 10-04-2019 10:04:21 MARKETING FORECASTER by Willie Leggett [email or web address] <ELECTRONICALLY SIGNED> By: Willie Leggett MD 10/04/19 1004 1612 161 Willie Leggett MD /EPI
--- NOTE | 2019-10-04 10:54 | NUR ---
0845 Patient took am medications without difficulty. She requested PRN pain medication for neck, back and arm pain when offered the Lidocain patch she stated "no that wont cover it all". She stated she has a bad shoulder on that rt side causing her arm to hurt. She has a moderate amount of dark liquid stool out from her ielostomy.
[2019-10-04 11:33] VITALS: BP 89/49
--- NOTE | 2019-10-04 14:27 | NUR ---
Patient asking for more pain medication for her neck and shoulder pain. I instructed her that it was ordered every 6 hours that she could have a Lidocain patch applied. She agreed to this, it was applied to her rt shoulder/neck area.
[2019-10-04 14:51] LABS: URINE BILIRUBIN NEGATIVE (Negative); URINE BLOOD 2+ (Negative); URINE CLARITY CLEAR; URINE COLOR YELLOW; URINE GLUCOSE-RANDOM* NEGATIVE (Negative); URINE KETONES NEGATIVE (Negative); URINE NITRITE-REFLEX NEGATIVE (Negative); URINE PROTEIN (DIPSTICK) NEGATIVE (Negative); URINE SPECIFIC GRAVITY >= 1.030 (1.005-1.035); URINE UROBILINOGEN 0.2 E.U./dl (0.2-1.0)
[2019-10-04 14:56] LABS: URINE LEUKOCYTES-REFLEX 1+ (Negative)
[2019-10-04 15:25] LABS: BACTERIA-REFLEX 1-9 Few /HPF (None Seen); CASTS None Seen /LPF (None Seen); CRYSTALS None Seen /LPF (None Seen); SQUAMOUS 0-3 Few /LPF (0-3); URINE RBC 0-2 Rare /HPF (0-2); URINE WBC-REFLEX >25 Many /HPF (0-5)
[2019-10-04 15:42] VITALS: BP 89/55
[2019-10-04 20:38] VITALS: BP 110/57
--- NOTE | 2019-10-04 22:47 | NUR ---
PT RESTLESS IN ROOM, WALKING REARRANGING ITEMS. PT AMBULATES INDEPENDENTLY, COMPLETES ADL CARES AND EMPTIES ILEOSTOMY. PT REQUESTED PRN FOR BACK PAIN AND PROVIDED SBP 110. PT PLANS ON ASKING DR IN AM FOR MUSCLE RELAXER AND ZANTAC. PT DECLINED HS SNACK. PT PLAYING MUSIC ON CELL PHONE AND TALKIG ON PHONE. BLUNTED AFFECT, GOOD EYE CONTACT.
[2019-10-05 04:40] VITALS: BP 111/61
--- NOTE | 2019-10-05 07:38 | HC ---
[facility] [place] [address] CONSULTATION Name: ELDON CALLE Room #: 353-P ADM IN M.R.#: [id number] Admission: 10/03/19 Attend Phys: Jason Hernandez MD Discharge: Date of : 66 Report #: [id number] THIS REPORT FOR: cc: JT - No family physician/PCP JT - No family physician/PCP Willie Leggett MD ~ CC: [facility] physician/PCP Jason Hernandez DATE OF SERVICE: 10/04/2019 CARDIOLOGY CONSULTATION INDICATION: Chest pain. HISTORY OF PRESENT ILLNESS: This is a 49-year-old female with a history of Crohn's disease, nonischemic cardiomyopathy, chronic pain syndrome, CVA, acute kidney injury, presenting with chest pain. The patient is followed by Cardiology over at [facility]. She has had multiple admissions to the ER at [facility] with abdominal discomfort. There is a question of drug seeking behavior for chronic pain. The patient presents this time with complaints of pressure across the chest area, associated with nausea and shortness of breath. She had one episode lasting 30 minutes in duration. She was recently hospitalized at [facility] in August for diarrhea and dehydration. She had a rise in the creatinine, improved with hydration. She denies any episodes of PND, fevers or orthopnea. PAST MEDICAL HISTORY: Cardiomyopathy with an echo from June 2018 revealing moderate LV dysfunction, EF 39%, left ventricular dilatation and [id number]-[id number] regurgitation. History of cardiac catheterization in July 2017 revealing normal coronary arteries, history of Crohn's disease with a subtotal colectomy and ileostomy, history of CVA, chronic pain syndrome, history of noncompliance, tobacco use, multiple ER visits for chronic pain syndrome with apparent drug seeking behavior. ALLERGIES: Please see the MAR for full listing. MEDICATIONS: Atorvastatin 40 mg, Brilinta twice a day, lisinopril 5 mg daily, aspirin once a day, spironolactone 12.5 mg daily. SOCIAL HISTORY: Chronic tobacco use, half a pack per day. FAMILY HISTORY: Negative for premature CAD. REVIEW OF SYSTEMS: A full 10-point review of systems performed. Only the pertinent positives and negatives are described in the HPI. [facility] [address] [place] [address] CONSULTATION Name: ELDON CALLE Room #: 353-P [facility] ..#: [id number] Admission: 10/03/19 Attend Phys: Jason Hernandez MD Discharge: Date of : 66 Report #: [id number] PHYSICAL EXAMINATION: VITAL SIGNS: Blood pressure is 106/50, heart rate is 55 beats per minute. GENERAL APPEARANCE: This is a well-developed, well-nourished female, in no acute distress. HEENT: Normocephalic, atraumatic. Oral mucosa moist. NECK: Supple. LUNGS: Clear to auscultation. CARDIAC: Regular rate and rhythm, S1, S2 positive. ABDOMEN: Soft, nontender. EXTREMITIES: No cyanosis, no edema. IMAGING: ECG reveals sinus rhythm, frequent PVCs. LABORATORY VALUES: White count 6.8, hemoglobin 12.6, creatinine initially was 3.3, down to 2.0 today. Troponin is negative x 1. ASSESSMENT AND PLAN: 1. Chest pain syndrome, she reports one episode of chest pain lasting 30 minutes in duration. Her last cardiac catheterization in 2017 revealed normal coronary arteries. Doubt this is ischemia related. May be related to a musculoskeletal etiology. She does have a history of drug seeking behavior. If she has any further pain, may need to consider stress testing. 2. Nonischemic cardiomyopathy[facility] Stable with no symptoms of congestion. Repeat an echo at this time. Continue on her cardiac medications. 3. Crohn's disease, continue with medications. 4. Tobacco use, complete smoking cessation is recommended. 5. Acute kidney injury, has a history of elevated creatinine, attributed to prerenal azotemia. Hydrate. <ELECTRONICALLY SIGNED> By: Willie Leggett MD 10/05/19 0738 1122 1533 Willie Leggett MD /nt
[2019-10-05 07:50] VITALS: BP 115/71
--- NOTE | 2019-10-05 10:23 | 2DMMODE ---
[facility] [place] [address] 2 D/M-MODE ECHOCARDIOGRAM Name: ELDON CALLE Room #: 353-P ADM IN M.R.#: [id number] Admission: 10/03/19 Attend Phys: Jason Hernandez MD Discharge: Date of : 66 Report #: [id number] THIS REPORT FOR: cc: FAM - No family physician/PCP FAM - No family physician/PCP Jayro Almonte MD ~ APPROVED REPORT Study performed: 10/05/2019 09:40:26 EXAM: Comprehensive 2D, Doppler, and color-flow Echocardiogram Patient Location: Echo lab Room #: [facility] Status: routine BSA: 1.84 HR: 72 bpm BP: 115/71 mmHg Rhythm: NSR Other Information Study Quality: Adequate/low windows Technically limited study due to lung disease.. Indications Chest pain syndrome, shortness of breath. Hx: NISCM, tobacco abuse. 2D Dimensions RVDd: 32.77 mm IVSd: 7.02 (7-11mm) LVOT Diam: 21.40 (18-24mm) LVDd: 45.12 mm PWd: 8.53 (7-11mm) LVDs: 37.83 (25-40mm) Aortic Root: 31.73 mm Volumes Left Atrial Volume (Systole) Single Plane 4CH: 24.07 mL Single Plane 2CH: 36.60 mL LA ESV Index: 18.00 mL/m2 Aortic Valve AoV Peak Jethro.: 1.18 m/s AO Peak Gr.: 5.52 mmHg LVOT Max P.54 mmHg LVOT Max V: 0.80 m/s [facility] [address] [address] 2 D/M-MODE ECHOCARDIOGRAM Name: ELDON CALLE Room #: 353-P ADM IN .R.#: [id number] Admission: 10/03/19 Attend Phys: Jason Hernandez MD Discharge: Date of : 66 Report #: [id number] Vmax: 2.44 cm2 Mitral Valve E/A Ratio: 0.7 MV Decel. Time: 337.22 ms MV E Max Jethro.: 0.56 m/s MV A Jethro.: 0.78 m/s MV PHT: 97.79 ms IVRT: 92.27 ms Pulmonary Vein P Vein S: 0.65 m/s P Vein D: 0.69 m/s P Vein S/D Ratio: 0.94 Tricuspid Valve TR Peak Jethro.: 2.64 m/s RAP Estimate: 5.00 mmHg TR Peak Gr.: 28.00 mmHg PA Pressure: 33.00 mmHg Left Ventricle The left ventricle is normal size. Mild global hypokinesis There is normal left ventricular wall thickness. Left ventricular systolic function is mildly decreased. LVEF is 45%. Mild diastolic dysfunction is present (impaired relaxation pattern). Right Ventricle The right ventricle is normal size. The right ventricular systolic function is normal. Atria The left atrium size is normal. The right atrium size is normal. Aortic Valve The aortic valve is normal in structure. No aortic regurgitation is present. There is no aortic valvular stenosis. Mitral Valve The mitral valve is normal in structure. Mild mitral regurgitation. Tricuspid Valve The tricuspid valve is normal in structure. Mild to moderate tricuspid regurgitation. Estimated PAP is 30-35mmHg. [facility] [place] [address] 2 D/M-MODE ECHOCARDIOGRAM Name: ELDON CALLE Room #: 353-P ADM IN M.R.#: [id number] Admission: 10/03/19 Attend Phys: Jason Hernandez MD Discharge: Date of : 66 Report #: [id number] Pulmonic Valve Pulmonic valve is not well visualized. Great Vessels The aortic root is normal in size. Ascending aorta is not well visualized. IVC is normal in size and collapses >50% with inspiration. Pericardium There is no pericardial effusion. <Conclusion> The left ventricle is normal size. LVEF is 45%. Mild global hypokinesis The aortic valve is normal in structure. The mitral valve is normal in structure. Mild mitral regurgitation. The tricuspid valve is normal in structure. Mild to moderate tricuspid regurgitation. Estimated PAP is 30-35mmHg. <ELECTRONICALLY SIGNED> By: Jayro Almonte MD 10/05/19 1022 1022 1022 Jayro Almonte MD /INF
[2019-10-05] MEDS ORDERED: NICOTINE TRANSD14 M1 TRANSDERM (10:40)
--- NOTE | 2019-10-05 10:59 | NUR ---
0700 Report received from Bella CAMPBELL patient resting quietly in bed at this time.
[2019-10-05 11:24] VITALS: BP 105/62
--- NOTE | 2019-10-05 13:54 | NUR ---
Patient being discharged to home with home health. SL removed prior to discharge.
[2019-10-05 14:12] VITALS: BP 105/62
--- NOTE | 2019-10-05 14:50 | NUR ---
DISCHARGE TO HOME PLANNED FOR TODAY. HOME WITH SNF HEALTH SERVICES. PATIENT REFERRAL, DISCHARGE/HOME HEALTH ORDERS FAXED TO [facility]. CALL PLACED TO [facility] TO NOTIFY. 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 PATIENTS PRIMARY CARE PHYSICIAN [place] [facility]. DAVE NOTIFIED.
--- NOTE | 2019-10-05 14:53 | NUR ---
discharge instructions gone over with the patient, Prescription given valuables and belongings with the patient. Patient expressed verbal and written understanding.
--- NOTE | 2019-10-05 14:55 | NUR ---
INITIAL ASSESSMENT/DISCHARGE NOTE: Received consult for discharge planning. SW reviewed chart and spoke with nursing and attending physician. Pt was admitted from home due to chest pain/[place]. Pt is medically stable for discharge home today. SW met with pt at bedside. Introduced role of SW. Pt is alert/orientated x 4. Pt reports she lives with her family in the [facility] at [address] [place] [address]. Prior to admission, pt was independent with ADLs. No use of DME. No hx of HH or SNF or post-acute placement. Pt's PCP is Dr. Guthrie at [facility]. Orders written for HH. Pt is agreeable. Options discussed for HH agencies. No preference voice. SW confirmed pt's home address and phone number. Pt is in room # 221. Pt needing transportation home. Cab voucher provided. No additional SW needs identified at this time, but is available to assist should needs arise.
== END 2019-10-05 15:12 | disposition home health service (06) | DRG 683 ==
LOC: ER 16:11 → EROBS 18:28 → 3W 21:22
PROVIDERS: Nurse Practitioner; ADMIT Internal Medicine
DX: N17.9 Acute kidney failure, unspecified (principal); K50.90 Crohn's disease, unspecified, without complications; I50.42 Chronic combined systolic (congestive) and diastolic (congestive) heart failure; I42.9 Cardiomyopathy, unspecified; I69.354 Hemiplegia and hemiparesis following cerebral infarction affecting left non-dominant side; R07.9 Chest pain, unspecified; F41.9 Anxiety disorder, unspecified; F32.9 Major depressive disorder, single episode, unspecified; G47.00 Insomnia, unspecified; G25.81 Restless legs syndrome; J45.909 Unspecified asthma, uncomplicated; G43.909 Migraine, unspecified, not intractable, without status migrainosus; I08.1 Rheumatic disorders of both mitral and tricuspid valves; E11.9 Type 2 diabetes mellitus without complications; I10 Essential (primary) hypertension; K21.9 Gastro-esophageal reflux disease without esophagitis; E78.5 Hyperlipidemia, unspecified; F17.210 Nicotine dependence, cigarettes, uncomplicated; Z88.0 Allergy status to penicillin; Z88.8 Allergy status to other drugs, medicaments and biological substances; Z91.041 Radiographic dye allergy status; Z71.6 Tobacco abuse counseling; Z82.3 Family history of stroke; Z82.49 Family history of ischemic heart disease and other diseases of the circulatory system; Z82.0 Family history of epilepsy and other diseases of the nervous system; Z79.891 Long term (current) use of opiate analgesic; Z79.82 Long term (current) use of aspirin; Z79.899 Other long term (current) drug therapy
CPT/HCPCS: 10879

== ENCOUNTER 2020-08-09 19:09 | Emergency (ER) | payer OTHER ==
[~2020-08-09] VITALS: Ht 167.6 cm; Wt 56.7 kg
--- NOTE | ~2020-08-09 | EMS ---
[address] [address] EMS Patient Care Report Name: ELDON CALLE Room #: REG KLARISSA Felix#: [id number] Admission: 08/09/20 Attend Phys: Discharge: Date of : 66 Report #: [id number] THIS REPORT FOR: //name// Report Transmitted: 08/09/2020 19:08 EMS Care Summary [place], [place]/[facility] Incident [id number] @ 08/09/2020 18:[address] [place] [address] Patient ELDON CALLE Female, 50 Years 1970 Patient Address [address] [place] [address] Patient History Asthma,Congestive Heart Failure (CHF),Hypertension (HTN),Stroke/CVA,Hyperlipidemia,Gastro-Esophageal Reflux Disease (GERD),Depression,Cholecystectomy,Pancreatitis,Gallbladder Disease,Type 1 Diabetes,Crohn's Disease, Patient Allergies Codeine,Penicillin allergy,Iodine,Ibuprofen,Adhesive Tape,Albuterol, Patient Medications Lansoprazole, Hydrocodone, Sertraline, Atorvastatin, Sucralfate, Diclofenac, Furosemide, Topamax, Dilaudid, Zofran, Ondansetron, Eliquis, Singulair, Zyrtec, Lisinopril, Chief Complaint Ileostomy bag leaking Disposition Transported No Lights/[place] Dispatch Reason Sick Person Transported To [address] [address] EMS Patient Care Report Name: ELDON CALLE Room #: REG [facility].#: [id number] Admission: 08/09/20 Attend Phys: Discharge: Date of : 66 Report #: [id number] Responded to the address for report of a sick patient. While en route to the scene dispatch advised Medic 537 to upgrade from non emergent to emergent per patient request. Arrived on scene and found the patient walking down the front steps from the single family residence to the ambulance alert and oriented x4 with a GCS of 15. The patient was questioned on a chief complaint and the patient advised that she was leaking feces from her ileostomy. The patient advised that her pharmacy had gave her the incorrect size bag and that she wished to be transported. The patient was then assisted into the ambulance without incident and packaged for transport. The patient was then assessed and found to be in a cardiac arrhythmia on a 4 lead EKG. A 12 lead was then performed and the patient was found to be in a normal sinus rhythm with occasional PVC's. The patient was questioned on the arrythmia and the patient reported that her doctor had advised that she had ectopic beats. The patient was monitored throughout transport with no changes in mental status or condition. Patient care was then transferred to the receiving facility without incident. Med unit back in service. Initial Vitals @18:39P: 95,VA Suspected: false @18:43P: 89,VA Suspected: false @18:47P: 94,R: 18,BP: 130/86,Pain: 0/10,GCS: 15,Glucose: 122,SpO2: 99,Revised Trauma: 12, @18:38P: 98,R: 18,BP: 146/87,Pain: 0/10,GCS: 15,SpO2: 100,Revised Trauma: 12, @18:51P: 89,R: 18,BP: 134/86,Pain: 0/10,GCS: 15,SpO2: 100,Revised Trauma: 12, Assessments @18:36MENTAL:Person Oriented,Time Oriented,Place Oriented,Event Oriented,SKIN:HEENT:Head/Face: No Abnormalities,Neck/Airway: No Abnormalities,LUNG SOUNDS:General: Other,ABDOMEN:General: Other,PELVIS//GI:EXTREMITIES:PULSE:NEURO:No Abnormalities, Impression Abdominal Pain Procedures @18:4312-Lead ECGResponse: UnchangedSucceeded@18:36ALS AssessmentResponse: UnchangedSucceeded@18:393-Lead ECGResponse: UnchangedSucceeded Timeline 18:08,Call Received 18:08,Dispatch Notified 18:19,Dispatched 18:20,En Route 18:35,On Scene 18:36,At Patient 18:36,ALS Assessment,Response: UnchangedSucceeded, [facility] [address] [facility] [place] [address] EMS Patient Care Report Name: ELDON CALLE Room #: REG KLARISSA Felix#: [id number] Admission: 08/09/20 Attend Phys: Discharge: Date of : 66 Report #: [id number] 18:38,BP: 146/87 M,PULSE: 98,RR: 18 R,SPO2: 100 Ox,ETCO2: ,BG: ,PAIN: 0,GCS: 15, 18:39,3-Lead ECG,Response: UnchangedSucceeded, 18:39,BP: / M,PULSE: 95,RR: R,SPO2: Ox,ETCO2: ,BG: ,PAIN: ,GCS: , 18:43,12-Lead ECG,Response: UnchangedSucceeded, 18:43,BP: / M,PULSE: 89,RR: R,SPO2: Ox,ETCO2: ,BG: ,PAIN: ,GCS: , 18:46,Depart Scene 18:47,BP: 130/86 M,PULSE: 94,RR: 18 R,SPO2: 99 Ox,ETCO2: ,B,PAIN: 0,GCS: 15, 18:51,BP: 134/86 M,PULSE: 89,RR: 18 R,SPO2: 100 Ox,ETCO2: ,BG: ,PAIN: 0,GCS: 15, 19:04,At Destination 19:20,Call Closed Disclaimer v1.1 Copyright 2020 [employer] This EMS Care Summary contains data elements from the applicable legal record (which may be displayed differently). It is designed to provide pertinent information for the following purposes: continuity of care, clinical quality, and state data reporting. The complete legal record is available to ED staff and administrators of the receiving hospital in ES's Patient Tracker. All data is provided "as is."
[~2020-08-09 19:09] MED LIST changes: +NICOTINE TRANSD14 M1 TRANSDERM; +PROAIR HFA8.5 GM INH
[2020-08-09 21:54] VITALS: BP 148/74
== END 2020-08-09 21:55 | disposition home or self-care (01) ==
LOC: ER 19:09
DX: K94.13 Enterostomy malfunction (principal); F32.9 Major depressive disorder, single episode, unspecified; F41.9 Anxiety disorder, unspecified; J45.909 Unspecified asthma, uncomplicated; G43.909 Migraine, unspecified, not intractable, without status migrainosus; E11.9 Type 2 diabetes mellitus without complications; I10 Essential (primary) hypertension; M19.90 Unspecified osteoarthritis, unspecified site; E03.9 Hypothyroidism, unspecified; I11.0 Hypertensive heart disease with heart failure; I50.9 Heart failure, unspecified; I25.2 Old myocardial infarction; F17.210 Nicotine dependence, cigarettes, uncomplicated; Z98.890 Other specified postprocedural states; Z86.73 Personal history of transient ischemic attack (TIA), and cerebral infarction without residual deficits; Z79.899 Other long term (current) drug therapy; Z79.82 Long term (current) use of aspirin; Z91.048 Other nonmedicinal substance allergy status; Z88.0 Allergy status to penicillin; Z88.8 Allergy status to other drugs, medicaments and biological substances; Z91.041 Radiographic dye allergy status